=== PATIENT | female | born 1935 | race Caucasian/White ===

== ENCOUNTER 2020-09-19 11:10 | Outpatient (REF) | payer MEDICARE, OTHER, SELFPAY ==
[2020-09-19 14:06] LABS: MANUAL DIFF FLAG NO
[2020-09-19 14:09] LABS: Basophils Percent Auto 0.4 % (0-2); Eosinophils Percent Auto 0.1 % (0-4); Hematocrit 35.1 % (37-47); Hemoglobin 11.2 g/dl (12.0-16.0); Imm Gran Abs Auto 0.04 X10*3/uL (0.00-0.03); Imm Gran Pct Auto 0.4 % (0.0-0.4); Lymphocytes Absolute Auto 2.4 X10*3/uL (1.2-4.9); Lymphocytes Percent Auto 26.7 % (20-40); Mean Corpuscular HGB Conc 31.9 g/dl (31.0-35.0); Mean Corpuscular Hemoglobin 29.6 pg (27.0-33.0); Mean Corpuscular Volume 92.6 fL (80-98); Mean Platelet Volume 9.9 fL (9.4-12.3); Monocytes Absolute Auto 0.6 X10*3/uL (0.1-1.2); Monocytes Percent Auto 6.1 % (2-11); Neutrophils Percent Auto 66.3 % (45-73); Platelet Count 216 X10*3/uL (160-400); Red Blood Count 3.79 X10*6/uL (4.20-5.50); Red Cell Distribution Width 12.9 % (11.0-16.0); White Blood Count 9.1 X10*3/uL (4.8-10.8)
[2020-09-19 14:36] LABS: Estimated Average Glucose 171 mg/dL; Hemoglobin A1c % 7.6 %
[2020-09-19 14:44] LABS: Anion Gap 15 (12-20); Blood Urea Nitrogen 19 mg/dL (9-16); Calcium 9.6 mg/dL (8.4-10.2); Carbon Dioxide 26 mmol/L (22-29); Chloride 103 mmol/L (96-108); Estimated Glomerular Filt Rate 41; Glucose Random 235 mg/dL (60-115); Potassium 4.7 mmol/l (3.3-5.1); Sodium 139 mmol/L (135-145)
[2020-09-19 15:05] LABS: TSH reflex Free T4 0.94 mIU/mL (0.32-4.0)
== END 2020-09-19 11:11 | disposition home or self-care (01) ==
LOC: HO.HMGCLDS 11:10
PROVIDERS: PCP Internal Medicine; Visit Provider Internal Medicine
DX: M17.0 Bilateral primary osteoarthritis of knee (principal); E78.9 Disorder of lipoprotein metabolism, unspecified; E03.8 Other specified hypothyroidism; E13.9 Other specified diabetes mellitus without complications; I10 Essential (primary) hypertension
CPT/HCPCS: 36415; 80048; 83036; 84443; 85025

== ENCOUNTER → 2020-10-01 12:43 | Outpatient (BNVA) | payer MEDICARE, OTHER, SELFPAY | PROVIDERS: PCP Internal Medicine; Referring Provider Internal Medicine; Visit Provider Orthopaedic Surgery | DX: M17.0 Bilateral primary osteoarthritis of knee (principal) | CPT/HCPCS: 99202 ==

== ENCOUNTER 2020-12-31 | Outpatient (REF) | payer MEDICARE, OTHER, SELFPAY | END 2020-12-31 00:01 | disposition home or self-care (01) | LOC: HO.VC | PROVIDERS: Visit Provider Internal Medicine | DX: Z23 Encounter for immunization (principal) | CPT/HCPCS: 0011A ==

== ENCOUNTER 2021-01-27 | Outpatient (REF) | payer MEDICARE, OTHER, SELFPAY | END 2021-01-27 00:01 | disposition home or self-care (01) | LOC: HO.VC | PROVIDERS: Visit Provider Internal Medicine | DX: Z23 Encounter for immunization (principal) | CPT/HCPCS: 0012A ==

== ENCOUNTER 2021-02-27 09:17 | Outpatient (REF) | payer MEDICARE, OTHER, SELFPAY ==
[2021-02-27 11:45] LABS: Estimated Average Glucose 189 mg/dL; Hemoglobin A1c % 8.2 %
[2021-02-27 12:11] LABS: Alanine Aminotransferase 13 U/L (0-31); Albumin Level 4.5 g/dL (3.5-5.0); Alkaline Phosphatase 108 U/L (39-117); Anion Gap 15 (12-20); Aspartate Amino Transferase 16 U/L (5-31); Bilirubin Total 0.3 mg/dL (0.0-1.0); Blood Urea Nitrogen 28 mg/dL (9-16); Calcium 9.7 mg/dL (8.4-10.2); Carbon Dioxide 24 mmol/L (22-29); Chloride 105 mmol/L (96-108); Cholesterol 150 mg/dL; Estimated Glomerular Filt Rate 43; Glucose Fasting 180 mg/dL (60-99); HDL Cholesterol 55 mg/dL; LDL Cholesterol Calculated 75 mg/dl; Potassium 4.6 mmol/L (3.3-5.1); Sodium 139 mmol/L (135-145); Total Protein 7.3 g/dL (6.5-8.0); Triglycerides 104 mg/dL
[2021-02-27 12:16] LABS: TSH reflex Free T4 1.86 uIU/mL (0.32-4.0)
[2021-02-27 12:23] LABS: Creatinine Urine 124.55 mg/dL; Microalbum/Creatinine Ratio Ur 69.8 ug/mg cr
== END 2021-02-27 09:18 | disposition home or self-care (01) ==
LOC: HO.HMGCLDS 09:17
PROVIDERS: PCP Internal Medicine; Visit Provider Internal Medicine
DX: E03.8 Other specified hypothyroidism (principal); R80.9 Proteinuria, unspecified; E78.9 Disorder of lipoprotein metabolism, unspecified; E13.9 Other specified diabetes mellitus without complications; I10 Essential (primary) hypertension
CPT/HCPCS: 36415; 80053; 80061; 82043; 83036; 84443

== ENCOUNTER 2021-07-03 10:21 | Outpatient (REF) | payer MEDICARE, OTHER, SELFPAY ==
[2021-07-03 11:31] LABS: Estimated Average Glucose 220 mg/dL; Hemoglobin A1c % 9.3 %
[2021-07-03 11:48] LABS: Alanine Aminotransferase 12 U/L (0-31); Albumin Level 4.3 g/dL (3.5-5.0); Alkaline Phosphatase 124 U/L (39-117); Anion Gap 15 (12-20); Aspartate Amino Transferase 16 U/L (5-31); Bilirubin Total 0.9 mg/dL (0.0-1.0); Blood Urea Nitrogen 18 mg/dL (9-16); Calcium 10.2 mg/dL (8.4-10.2); Carbon Dioxide 26 mmol/L (22-29); Chloride 102 mmol/L (96-108); Cholesterol 147 mg/dL; Estimated Glomerular Filt Rate 34; Glucose Random 197 mg/dL (60-115); HDL Cholesterol 52 mg/dL; LDL Cholesterol Calculated 71 mg/dl; Potassium 4.7 mmol/L (3.3-5.1); Sodium 138 mmol/L (135-145); Total Protein 7.2 g/dL (6.5-8.0); Triglycerides 121 mg/dL
== END 2021-07-03 10:22 | disposition home or self-care (01) ==
LOC: HO.HMGCLDS 10:21
PROVIDERS: PCP Internal Medicine; Visit Provider Internal Medicine
DX: E03.8 Other specified hypothyroidism (principal); E13.9 Other specified diabetes mellitus without complications; E78.9 Disorder of lipoprotein metabolism, unspecified; I10 Essential (primary) hypertension; R80.9 Proteinuria, unspecified
CPT/HCPCS: 36415; 80053; 80061; 82043; 83036

== ENCOUNTER 2021-11-06 10:56 | Outpatient (REF) | payer MEDICARE, OTHER, SELFPAY ==
[2021-11-06 14:14] LABS: Estimated Average Glucose 171 mg/dL; Hemoglobin A1c % 7.6 %
[2021-11-06 14:34] LABS: Alanine Aminotransferase 16 U/L (0-31); Albumin Level 4.4 g/dL (3.5-5.0); Alkaline Phosphatase 118 U/L (39-117); Anion Gap 18 (12-20); Aspartate Amino Transferase 20 U/L (5-31); Bilirubin Total 0.6 mg/dL (0.0-1.0); Blood Urea Nitrogen 16 mg/dL (9-16); Carbon Dioxide 23 mmol/L (22-29); Chloride 104 mmol/L (96-108); Estimated Glomerular Filt Rate 35; Glucose Random 236 mg/dL (60-115); Potassium 4.5 mmol/L (3.3-5.1); Sodium 140 mmol/L (135-145)
== END 2021-11-06 10:57 | disposition home or self-care (01) ==
LOC: HO.HMGCLDS 10:56
PROVIDERS: PCP Internal Medicine; Visit Provider Internal Medicine
DX: E03.8 Other specified hypothyroidism (principal); E13.9 Other specified diabetes mellitus without complications; E78.9 Disorder of lipoprotein metabolism, unspecified; I10 Essential (primary) hypertension; R79.89 Other specified abnormal findings of blood chemistry
CPT/HCPCS: 36415; 80053; 83036

== ENCOUNTER 2022-03-03 08:23 | Outpatient (REF) | payer MEDICARE, OTHER, SELFPAY ==
[2022-03-03 11:28] LABS: MANUAL DIFF FLAG NO
[2022-03-03 11:37] LABS: Basophils Absolute Auto 0.1 X10*3/uL (0.0-0.2); Basophils Percent Auto 0.5 % (0-2); Eosinophils Absolute Auto 0.3 X10*3/uL (0.0-0.4); Eosinophils Percent Auto 2.4 % (0-4); Hematocrit 37.9 % (37.0-47.0); Hemoglobin 12.3 g/dl (12.0-16.0); Imm Gran Abs Auto 0.05 X10*3/uL (0.00-0.03); Imm Gran Pct Auto 0.5 % (0.0-0.4); Lymphocytes Absolute Auto 3.8 X10*3/uL (1.2-4.9); Lymphocytes Percent Auto 36.9 % (20-40); Mean Corpuscular HGB Conc 32.5 g/dl (31.0-35.0); Mean Corpuscular Hemoglobin 30.1 pg (27.0-33.0); Mean Corpuscular Volume 92.7 fL (80.0-98.0); Monocytes Absolute Auto 0.6 X10*3/uL (0.1-1.2); Monocytes Percent Auto 5.7 % (2-11); Neutrophils Absolute Auto 5.5 x10*3/uL (2.0-8.3); Platelet Count 239 X10*3/uL (160-400); Red Blood Count 4.09 X10*6/uL (4.20-5.50); Red Cell Distribution Width 12.9 % (11.0-16.0); White Blood Count 10.3 X10*3/uL (4.8-10.8)
[2022-03-03 11:44] LABS: Estimated Average Glucose 171 mg/dL; Hemoglobin A1c % 7.6 %
[2022-03-03 12:09] LABS: Creatinine Urine 73.86 mg/dL; Microalbum/Creatinine Ratio Ur 28.4 ug/mg cr
[2022-03-03 12:15] LABS: Alanine Aminotransferase 15 U/L (0-31); Albumin Level 4.4 g/dL (3.5-5.0); Alkaline Phosphatase 122 U/L (39-117); Anion Gap 14 (12-20); Aspartate Amino Transferase 18 U/L (5-31); Bilirubin Total 0.9 mg/dL (0.0-1.0); Blood Urea Nitrogen 22 mg/dL (9-16); Calcium 9.7 mg/dL (8.4-10.2); Carbon Dioxide 25 mmol/L (22-29); Chloride 103 mmol/L (96-108); Cholesterol 151 mg/dL; Estimated Glomerular Filt Rate 37; Glucose Fasting 171 mg/dL (60-99); HDL Cholesterol 50 mg/dL; LDL Cholesterol Calculated 77 mg/dl; Potassium 4.6 mmol/L (3.3-5.1); Sodium 137 mmol/L (135-145); Total Protein 7.1 g/dL (6.5-8.0); Triglycerides 120 mg/dL
== END 2022-03-03 08:24 | disposition home or self-care (01) ==
LOC: HO.HMGCLDS 08:23
PROVIDERS: Visit Provider Internal Medicine
DX: E03.8 Other specified hypothyroidism (principal); E13.9 Other specified diabetes mellitus without complications; E78.9 Disorder of lipoprotein metabolism, unspecified; I10 Essential (primary) hypertension; M17.0 Bilateral primary osteoarthritis of knee; R79.89 Other specified abnormal findings of blood chemistry; R80.9 Proteinuria, unspecified
CPT/HCPCS: 36415; 80053; 80061; 82043; 83036; 85025

== ENCOUNTER 2022-09-07 09:02 | Outpatient (REF) | payer MEDICARE, OTHER, SELFPAY ==
[2022-09-07 11:33] LABS: Estimated Average Glucose 171 mg/dL; Hemoglobin A1c % 7.6 %
[2022-09-07 12:01] LABS: Alanine Aminotransferase 15 U/L (0-31); Albumin Level 4.5 g/dL (3.5-5.0); Alkaline Phosphatase 112 U/L (39-117); Anion Gap 15 (12-20); Aspartate Amino Transferase 18 U/L (5-31); Bilirubin Total 0.7 mg/dL (0.0-1.0); Blood Urea Nitrogen 18 mg/dL (9-16); Calcium 9.5 mg/dL (8.4-10.2); Carbon Dioxide 25 mmol/L (22-29); Chloride 107 mmol/L (96-108); Estimated Glomerular Filt Rate 42; Glucose Random 156 mg/dL (60-115); Potassium 4.3 mmol/L (3.3-5.1); Sodium 143 mmol/L (135-145); Total Protein 7.1 g/dL (6.5-8.0)
[2022-09-07 12:07] LABS: Creatinine Urine 64.38 mg/dL; Microalbum/Creatinine Ratio Ur 41.9 ug/mg cr
[2022-09-07 12:12] LABS: TSH reflex Free T4 1.14 uIU/mL (0.32-4.0)
== END 2022-09-07 09:03 | disposition home or self-care (01) ==
LOC: HO.HMGCLDS 09:02
PROVIDERS: PCP Internal Medicine; Visit Provider Internal Medicine
DX: I10 Essential (primary) hypertension (principal); E13.9 Other specified diabetes mellitus without complications; E03.8 Other specified hypothyroidism; E78.9 Disorder of lipoprotein metabolism, unspecified; M17.0 Bilateral primary osteoarthritis of knee; R80.9 Proteinuria, unspecified; R79.89 Other specified abnormal findings of blood chemistry
CPT/HCPCS: 36415; 80053; 82043; 83036; 84443

== ENCOUNTER 2023-02-16 10:37 | Outpatient (REF) | payer MEDICARE, OTHER, SELFPAY ==
[2023-02-16 12:47] LABS: Estimated Average Glucose 186 mg/dL; Hemoglobin A1c % 8.1 %
[2023-02-16 13:08] LABS: TSH reflex Free T4 1.64 uIU/mL (0.32-4.0)
[2023-02-16 13:10] LABS: Anion Gap 13 (12-20)
[2023-02-16 13:14] LABS: Alanine Aminotransferase 12 U/L (0-31); Albumin Level 4.4 g/dL (3.5-5.0); Alkaline Phosphatase 131 U/L (39-117); Aspartate Amino Transferase 17 U/L (5-31); Bilirubin Total 0.8 mg/dL (0.0-1.0); Blood Urea Nitrogen 21 mg/dL (9-16); Calcium 9.7 mg/dL (8.4-10.2); Carbon Dioxide 26 mmol/L (22-29); Chloride 105 mmol/L (96-108); Estimated Glomerular Filt Rate 38; Glucose Random 158 mg/dL (60-115); Potassium 4.6 mmol/L (3.3-5.1); Sodium 139 mmol/L (135-145)
== END 2023-02-16 10:38 | disposition home or self-care (01) ==
LOC: HO.HMGCLDS 10:37
PROVIDERS: PCP Internal Medicine; Visit Provider Internal Medicine
DX: I10 Essential (primary) hypertension (principal); E13.9 Other specified diabetes mellitus without complications; E03.8 Other specified hypothyroidism; E78.9 Disorder of lipoprotein metabolism, unspecified; R80.9 Proteinuria, unspecified; N28.9 Disorder of kidney and ureter, unspecified
CPT/HCPCS: 36415; 80053; 83036; 84443

== ENCOUNTER 2023-05-11 10:25 | Outpatient (REF) | payer MEDICARE, OTHER, SELFPAY ==
[2023-05-11 10:56] LABS: OBS Int Ctl Valid YES; OBS1 NEGATIVE (NEGATIVE)
[2023-05-11 12:25] LABS: Leukocytes Stool Qualitative NEGATIVE (NEGATIVE)
[2023-05-11 14:02] LABS: Adenovirus F 40/41 Not Detected (Not Detect.); Astrovirus Not Detected (Not Detect.); Campylobacter Not Detected (Not Detect.); Cryptosporidium Not Detected (Not Detect.); Cyclospora cayetanensis Not Detected (Not Detect.); E. coli EAEC Not Detected (Not Detect.); E. coli EPEC Not Detected (Not Detect.); E. coli ETEC Not Detected (Not Detect.); E. coli STEC Not Detected (Not Detect.); Entamoeba histolytica Not Detected (Not Detect.); Giardia lamblia Not Detected (Not Detect.); Norovirus GI/GII Not Detected (Not Detect.); Plesiomonas shigelloides Not Detected (Not Detect.); Rotavirus A Not Detected (Not Detect.); Salmonella Not Detected (Not Detect.); Sapovirus Not Detected (Not Detect.); Shigella sp./EIEC Not Detected (Not Detect.); Vibrio Not Detected (Not Detect.); Vibrio Cholerae Not Detected (Not Detect.); Yersinia enterocolitica Not Detected (Not Detect.)
[2023-05-18 18:58] LABS: Calprotectin, Fecal 1520 mcg/g
[2023-05-20 10:13] LABS: Fecal Fat Qualitative NORMAL (NORMAL)
[2023-05-20 19:53] LABS: Pancreatic Elastase-1 496 mcg/g
== END 2023-05-11 10:26 | disposition home or self-care (01) ==
LOC: HO.LNP 10:25
PROVIDERS: Visit Provider Internal Medicine Gastroenterology
DX: R19.7 Diarrhea, unspecified (principal)
CPT/HCPCS: 82272; 82656; 82705; 83993; 87507; 89055

== ENCOUNTER 2023-06-06 11:04 | Outpatient (REF) | payer MEDICARE, OTHER, SELFPAY | END 2023-06-06 11:05 | disposition home or self-care (01) | LOC: HO.LNP 11:04 | PROVIDERS: Visit Provider Internal Medicine Gastroenterology | DX: R19.7 Diarrhea, unspecified (principal) | CPT/HCPCS: 87177; 87209; 87329; 87493 ==

== ENCOUNTER 2023-06-20 08:30 | Outpatient (REF) | payer MEDICARE, OTHER, SELFPAY ==
[2023-06-20 12:02] LABS: Estimated Average Glucose 166 mg/dL; Hemoglobin A1c % 7.4 %
[2023-06-20 12:08] LABS: Alanine Aminotransferase 15 U/L (0-31); Albumin Level 4.2 g/dL (3.5-5.0); Alkaline Phosphatase 126 U/L (39-117); Anion Gap 13 (12-20); Aspartate Amino Transferase 18 U/L (5-31); Bilirubin Total 0.7 mg/dL (0.0-1.0); Blood Urea Nitrogen 19 mg/dL (9-16); Calcium 10.6 mg/dL (8.4-10.2); Carbon Dioxide 27 mmol/L (22-29); Chloride 106 mmol/L (96-108); Estimated Glomerular Filt Rate 41; Glucose Random 154 mg/dL (60-115); Sodium 141 mmol/L (135-145); Total Protein 7.3 g/dL (6.5-8.0)
== END 2023-06-20 08:31 | disposition home or self-care (01) ==
LOC: HO.HMGCLDS 08:30
PROVIDERS: PCP Internal Medicine; Visit Provider Internal Medicine
DX: E03.8 Other specified hypothyroidism (principal); E13.9 Other specified diabetes mellitus without complications; E78.9 Disorder of lipoprotein metabolism, unspecified; I10 Essential (primary) hypertension; N28.9 Disorder of kidney and ureter, unspecified; R80.9 Proteinuria, unspecified
CPT/HCPCS: 36415; 80053; 83036

== ENCOUNTER 2023-07-19 09:41 | Outpatient (AMB) | payer MEDICARE, OTHER, SELFPAY ==
[2023-07-19 09:47] VITALS: BP 140/72; PULSE 69; O2SAT 96; BMI 29.1
--- NOTE | 2023-07-19 09:47 | A.OFFPC_ITS ---
Vital Signs 07/19/23 09:47 Height 5 ft 5 in Weight 175 lb 2 oz BMI 29.1 BP 140/72 H Blood Pressure Location Lt brachial Position Sitting Pulse 69 Pulse Source Pulse Oximeter Pulse Oximetry (%) 96 Oxygen Delivery Method Room Air Intake Visit Reasons: 4m follow up Allergies No Known Allergies Allergy (Mild, Verified 07/19/23 09:51) NA Medication List - Last Reconciled 07/19/23 by Yves Arce MD amlodipine 10 mg PO DAILY 90 days atorvastatin 40 mg PO DAILY 90 days blood sugar diagnostic As directed blood sugar diagnostic (Accu-Chek Suzi Plus test strips) Patient to check blood sugar once daily blood-glucose meter As directed glipizide-metformin 2.5-500 mg 1 tab PO BID 90 days lancets As directed lancets (Accu-Chek Softclix Lancets) Patient to check blood sugar once daily levothyroxine (Levoxyl) 100 mcg PO DAILY 90 days olmesartan 20 mg PO DAILY Tobacco use date assessed: 07/19/23 Fall risk assessment: No Falls in past year Last assessed Fall Risk: 07/19/23 Dental Screening Dental Screen Date: 07/19/23 Did you have a dental visit in the last 12 months?: Yes Did you have a dental problem in the last 6 months where you did not have access to dental care?: No Was dental information given to patient?: No HPI 4m follow up HPI Details Patient is 88-year-old female came in today for her regular follow-up visit.? Patient is in her usual state of health and offer no new complaints today Nephropathy with low GFR , GFR has improved from 38-41. Patient do not want to see any specialist. Diabetes mellitus:? She is to Continue glipizide metformin combination of 2.5- 500 mg b.i.d., hemoglobin A1c checked in May is 7.4 Hypertension:? Patient is on amlodipine 10 mg and olmesartan 20 mg, blood pressure is slightly elevated today we will continue to monitor Has slight swelling of left ankle only Hypothyroidism:? Patient is on levothyroxine 100 mcg.?, TSH is within normal limit She does have microalbuminuria as well.? 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 Son No problems noted. Son No problems noted. Son No problems noted. Son No problems noted. Social History Housing: House Alcohol intake: never Patient Tobacco Use Status: Former Tobacco user (30 years ago ) Tobacco use type: Cigarette Years Smoked: 20 years e-Cigarette/Vaping Use: Never Used service: No Current occupational status: retired Current occupation: Right Handed Cognitive needs: No Hearing needs: No Vision needs: Yes Questionnaire Thrive Questionnaire Date Thrive assessed: 12/17/22 AUDIT C Alcohol Use Questionnaire (AUDIT-C) 1. How often do you have a drink containing alcohol?: Never 3. How often do you have six or more drinks on one occasion?: Never Total Score: 0 Score Reviewed/Action Taken: Yes PATRICIA-7 AMB Questionnaire PATRICIA-7 Date PATRICIA - 7 assessed: 12/17/22 Source: Developed by Drs. Abiel Christensen, Malu Ram, Jean-Pierre Higginbotham and colleagues, with an educational zuleyma from [employer]. Review of Systems Const Denies chills and Denies fever(s) ENT Denies epistaxis and Denies nasal discharge Card Denies chest pain Resp Denies chest congestion, Denies cough and Denies hemoptysis GI Denies diarrhea and Denies nausea Skin/Breast Denies rash Neuro Reports no additional complaints Psych Reports no additional complaints Endo Reports no additional complaints Physical exam (Primary Care) Vital Signs: Last Vital Signs Pulse 69 07/19/23 09:47 BP 140/72 H 07/19/23 09:47 Pulse Ox 96 07/19/23 09:47 Oxygen Delivery Method Room Air 07/19/23 09:47 BMI result Body Mass Index 29.1 Tobacco/Smoking Status: Tobacco use Status Tobacco use date assessed 07/19/23 07/19/23 09:52 Patient Tobacco Use Status Former Tobacco user (30 07/19/23 09:49 years ago ) Tobacco use type Cigarette 07/19/23 09:49 e-Cigarette/Vaping Use Never Used 07/19/23 09:49 Thrive Assessment: Date of Thrive Assessment Date Thrive assessed 12/17/22 07/19/23 09:49 Const General: cooperative, comfortable and no acute distress Orientation/consciousness: patient oriented x3 HENMT Head: Yes normocephalic Eyes General: appearance normal, both eyes and all related structures Neck Neck: Yes supple Resp Effort & Inspection: normal respiratory effort, no cough and no stridor Cardio Rhythm: regular rhythm Heart sounds: S1 normal heart sound present and S2 normal heart sound present Skin General skin exam: turgor normal Neuro General: patient oriented x3, tone normal and moves all extremities Assessment and Plan Assessment & Plan (1) Diabetes 1.5, managed as type 2: Code(s): E13.9 - Other specified diabetes mellitus without complications (2) Hypertension, essential: Code(s): I10 - Essential (primary) hypertension (3) Other specified hypothyroidism: Code(s): E03.8 - Other specified hypothyroidism (4) Lipid disorder: Code(s): E78.9 - Disorder of lipoprotein metabolism, unspecified (5) Microalbuminuria: Code(s): R80.9 - Proteinuria, unspecified (6) Nephropathy: Code(s): N28.9 - Disorder of kidney and ureter, unspecified (7) Edema, lower extremity: Code(s): R60.0 - Localized edema Plan Patient is 88-year-old female came in today for her regular follow-up visit.? Patient is in her usual state of health and offer no new complaints today Nephropathy with low GFR , GFR has improved from 38-41. Patient do not want to see any specialist. Diabetes mellitus:? She is to Continue glipizide metformin combination of 2.5- 500 mg b.i.d., hemoglobin A1c checked in May is 7.4 Hypertension:? Patient is on amlodipine 10 mg and olmesartan 20 mg, blood pressure is slightly elevated today we will continue to monitor Has slight swelling of left ankle only Hypothyroidism:? Patient is on levothyroxine 100 mcg.?, TSH is within normal limit She does have microalbuminuria as well.? 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 Panel 3 Months E03.8 - Other specified hypothyroidism, E13.9 - Other specified diabetes mellitus without complications, E78.9 - Disorder of lipoprotein metabolism, unspecified, I10 - Essential (primary) hypertension, N28.9 - Disorder of kidney and ureter, unspecified, R60.0 - Localized edema, R80.9 - Proteinuria, unspecified Hemoglobin A1c 3 Months E03.8 - Other specified hypothyroidism, E13.9 - Other specified diabetes mellitus without complications, E78.9 - Disorder of lipoprotein metabolism, unspecified, I10 - Essential (primary) hypertension, N28.9 - Disorder of kidney and ureter, unspecified, R60.0 - Localized edema, R80.9 - Proteinuria, unspecified TSH reflex Free T4 3 Months E03.8 - Other specified hypothyroidism, E13.9 - Other specified diabetes mellitus without complications, E78.9 - Disorder of lipoprotein metabolism, unspecified, I10 - Essential (primary) hypertension, N28.9 - Disorder of kidney and ureter, unspecified, R60.0 - Localized edema, R80.9 - Proteinuria, unspecified Complete Blood Count Auto Diff 3 Months E03.8 - Other specified hypothyroidism, E13.9 - Other specified diabetes mellitus without complications, E78.9 - Disorder of lipoprotein metabolism, unspecified, I10 - Essential (primary) hypertension, N28.9 - Disorder of kidney and ureter, unspecified, R60.0 - Localized edema, R80.9 - Proteinuria, unspecified Coding Level of Care Code Est Pt Level 4 (24000) Diagnoses Diabetes 1.5, managed as type 2 E13.9 Hypertension, essential I10 Other specified hypothyroidism E03.8 Lipid disorder E78.9 Microalbuminuria R80.9 Nephropathy N28.9 Edema, lower extremity R60.0
== END 2023-07-19 10:11 | disposition home or self-care (01) ==
PROVIDERS: PCP Internal Medicine; Visit Provider Internal Medicine
DX: E13.9 Other specified diabetes mellitus without complications (principal); I10 Essential (primary) hypertension; E03.8 Other specified hypothyroidism; E78.9 Disorder of lipoprotein metabolism, unspecified; R80.9 Proteinuria, unspecified; N28.9 Disorder of kidney and ureter, unspecified; R60.0 Localized edema
CPT/HCPCS: 99214

== ENCOUNTER 2023-10-14 07:56 | Outpatient (REF) | payer MEDICARE, OTHER, SELFPAY ==
[2023-10-14 11:28] LABS: MANUAL DIFF FLAG NO
[2023-10-14 11:36] LABS: Basophils Absolute Auto 0.1 X10*3/uL (0.0-0.2); Basophils Percent Auto 0.7 % (0-2); Hemoglobin 11.3 g/dl (12.0-16.0); Imm Gran Abs Auto 0.02 X10*3/uL (0.00-0.03); Imm Gran Pct Auto 0.2 % (0.0-0.4); Lymphocytes Absolute Auto 3.9 X10*3/uL (1.2-4.9); Lymphocytes Percent Auto 43.7 % (20-40); Mean Corpuscular HGB Conc 33.2 g/dl (31.0-35.0); Mean Corpuscular Volume 90.2 fL (80.0-98.0); Mean Platelet Volume 9.9 fL (9.4-12.3); Monocytes Absolute Auto 0.5 X10*3/uL (0.1-1.2); Neutrophils Absolute Auto 4.4 x10*3/uL (2.0-8.3); Neutrophils Percent Auto 49.4 % (45-73); Platelet Count 221 X10*3/uL (160-400); Red Blood Count 3.77 X10*6/uL (4.20-5.50); Red Cell Distribution Width 12.9 % (11.0-16.0); White Blood Count 8.9 X10*3/uL (4.8-10.8)
[2023-10-14 11:54] LABS: Estimated Average Glucose 151 mg/dL; Hemoglobin A1C 150.5032 umol/L; Hemoglobin A1c % 6.9 % (<6.0)
[2023-10-14 12:11] LABS: Alanine Aminotransferase 14 U/L (0-31); Albumin Level 4.2 g/dL (3.5-5.0); Alkaline Phosphatase 111 U/L (39-117); Anion Gap 11 (12-20); Aspartate Amino Transferase 17 U/L (5-31); Bilirubin Total 0.6 mg/dL (0.0-1.0); Blood Urea Nitrogen 25 mg/dL (9-16); Calcium 9.5 mg/dL (8.4-10.2); Carbon Dioxide 25 mmol/L (22-29); Chloride 110 mmol/L (96-108); Estimated Glomerular Filt Rate 44; Glucose Random 153 mg/dL (60-115); Sodium 142 mmol/L (135-145); Total Protein 7.1 g/dL (6.5-8.0)
[2023-10-14 12:13] LABS: TSH reflex Free T4 1.34 uIU/mL (0.32-4.0)
== END 2023-10-14 07:57 | disposition home or self-care (01) ==
LOC: HO.HMGCLDS 07:56
PROVIDERS: PCP Internal Medicine; Visit Provider Internal Medicine
DX: R60.0 Localized edema (principal); N28.9 Disorder of kidney and ureter, unspecified; R80.9 Proteinuria, unspecified; E78.9 Disorder of lipoprotein metabolism, unspecified; E03.8 Other specified hypothyroidism; E13.9 Other specified diabetes mellitus without complications; I10 Essential (primary) hypertension
CPT/HCPCS: 36415; 80053; 83036; 84443; 85025

== ENCOUNTER 2023-10-19 09:45 | Outpatient (AMB) | payer MEDICARE, OTHER, SELFPAY ==
--- NOTE | 2023-10-19 09:55 | MHC.PC.OV ---
Vital Signs 10/19/23 09:56 Height 5 ft 5 in Weight 175 lb 2 oz BMI 29.1 BP 142/52 H Blood Pressure Location Rt brachial Position Sitting Pulse 71 Pulse Source Pulse Oximeter Pulse Oximetry (%) 96 Oxygen Delivery Method Room Air Intake Visit Reasons: 3m follow up Allergies No Known Allergies Allergy (Mild, Verified 10/19/23 09:56) NA Medication List - Last Reconciled 10/19/23 by Yves Arce MD amlodipine 10 mg PO DAILY 90 days atorvastatin 40 mg PO DAILY 90 days blood sugar diagnostic As directed blood sugar diagnostic (Accu-Chek Suzi Plus test strips) Patient to check blood sugar once daily blood-glucose meter As directed glipizide-metformin 2.5-500 mg 1 tab PO BID 90 days lancets As directed lancets (Accu-Chek Softclix Lancets) Patient to check blood sugar once daily levothyroxine (Levoxyl) 100 mcg PO DAILY 90 days olmesartan 20 mg PO DAILY Tobacco use date assessed: 10/19/23 Fall risk assessment: No Falls in past year Last assessed Fall Risk: 10/19/23 Dental Screening Dental Screen Date: 10/19/23 Did you have a dental visit in the last 12 months?: Yes Did you have a dental problem in the last 6 months where you did not have access to dental care?: No Was dental information given to patient?: Patient has dentist HPI 3m follow up HPI Details Patient is 88-year-old female came in today for her regular follow-up visit.? Patient had recent visit to her harness placer and had few lesions removed from her body for biopsy Labs done recently reviewed with the patient Nephropathy with low GFR , GFR has improved has improved further to 44 Diabetes mellitus:? She is to Continue glipizide metformin combination of 2.5-500 mg b.i.d., hemoglobin A1c is 6.9 Hypertension:? Patient is on amlodipine 10 mg and olmesartan 20 mg, blood pressure is slightly elevated today we will continue to monitor Ankle swelling is better Hypothyroidism:? Patient is on levothyroxine 100 mcg.?, TSH is within normal limit She does have microalbuminuria as well.? 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 Son No problems noted. Son No problems noted. Son No problems noted. Son No problems noted. Housing: House Alcohol intake: never Patient Tobacco Use Status: Former Tobacco user (30 years ago ) Tobacco use type: Cigarette Years Smoked: 20 years e-Cigarette/Vaping Use: Never Used service: No Current occupational status: retired Current occupation: Right Handed Cognitive needs: No Hearing needs: No Vision needs: Yes Questionnaire PHQ-9 Over the last 2 weeks, how often have you been bothered by any of the following problems? 1. Little interest or pleasure in doing things: not at all 2. Feeling down, depressed, or hopeless: not at all 3. Trouble falling or staying asleep, or sleeping too much: not at all 4. Feeling tired or having little energy: not at all 5. Poor appetite or overeating: not at all 6. Feeling bad about yourself - or that you are a failure or have let yourself or your family down: not at all 7. Trouble concentrating on things, such as reading the newspaper or watching television: not at all 8. Moving or speaking so slowly that other people could have noticed. Or the opposite - being so fidgety or restless that you have been moving around a lot more than usual: not at all 9. Thoughts that you would be better off or of hurting yourself in some way: not at all Total score: 0 Depression Screening Interpretation: Negative Depression Screening Done: Yes 54366 - PHQ-9 Billing: Yes Source: Developed by Drs. Abiel Christensen, Malu Ram, Jean-Pierre Higginbotham and colleagues, with an educational zuleyma from [employer]. Thrive Questionnaire Date Thrive assessed: 12/17/22 AUDIT C Alcohol Use Questionnaire (AUDIT-C) 1. How often do you have a drink containing alcohol?: Never 3. How often do you have six or more drinks on one occasion?: Never Total Score: 0 Score Reviewed/Action Taken: No PATRICIA-7 AMB Questionnaire PATRICIA-7 Date PATRICIA - 7 assessed: 12/17/22 Source: Developed by Drs. Abiel Christensen, Malu Ram, Jean-Pierre Higginbotham and colleagues, with an educational zuleyma from [employer]. Review of Systems Const Denies chills and Denies fever(s) ENT Denies epistaxis and Denies nasal discharge Card Denies chest pain Resp Denies chest congestion, Denies cough and Denies hemoptysis GI Denies diarrhea and Denies nausea Skin/Breast Denies rash Neuro Reports no additional complaints Psych Reports no additional complaints Endo Reports no additional complaints Physical exam (Primary Care) Vital Signs: Last Vital Signs Pulse 71 10/19/23 09:56 BP 142/52 H 10/19/23 09:56 Pulse Ox 96 10/19/23 09:56 Oxygen Delivery Method Room Air 10/19/23 09:56 BMI result Body Mass Index 29.1 Tobacco/Smoking Status: Tobacco use Status Tobacco use date assessed 10/19/23 10/19/23 09:57 Patient Tobacco Use Status Former Tobacco user (30 10/19/23 09:57 years ago ) Tobacco use type Cigarette 10/19/23 09:57 e-Cigarette/Vaping Use Never Used 10/19/23 09:57 PHQ-9: PHQ-9 Score PHQ-9: Total score 0 10/19/23 10:13 Depression Screening Interpretation: Negative Thrive Assessment: Date of Thrive Assessment Date Thrive assessed 12/17/22 10/19/23 09:57 Const General: cooperative, comfortable and no acute distress Orientation/consciousness: patient oriented x3 HENMT Head: Yes normocephalic Eyes General: appearance normal, both eyes and all related structures Neck Neck: Yes supple Resp Effort & Inspection: normal respiratory effort, no cough and no stridor Cardio Rhythm: regular rhythm Heart sounds: S1 normal heart sound present and S2 normal heart sound present Skin General skin exam: turgor normal Neuro General: patient oriented x3, tone normal and moves all extremities Extrem Right lower extremity: no edema Left lower extremity: no edema Assessment and Plan Assessment & Plan (1) Diabetes 1.5, managed as type 2: Code(s): E13.9 - Other specified diabetes mellitus without complications (2) Hypertension, essential: Code(s): I10 - Essential (primary) hypertension (3) Other specified hypothyroidism: Code(s): E03.8 - Other specified hypothyroidism (4) Lipid disorder: Code(s): E78.9 - Disorder of lipoprotein metabolism, unspecified (5) Microalbuminuria: Code(s): R80.9 - Proteinuria, unspecified (6) Nephropathy: Code(s): N28.9 - Disorder of kidney and ureter, unspecified (7) Cardiac pacemaker in situ: Code(s): Z95.0 - Presence of cardiac pacemaker Plan Patient is 88-year-old female came in today for her regular follow-up visit.? Patient had recent visit to her harness placer and had few lesions removed from her body for biopsy Labs done recently reviewed with the patient Nephropathy with low GFR , GFR has improved has improved further to 44 Diabetes mellitus:? She is to Continue glipizide metformin combination of 2.5-500 mg b.i.d., hemoglobin A1c is 6.9 Hypertension:? Patient is on amlodipine 10 mg and olmesartan 20 mg, blood pressure is slightly elevated today we will continue to monitor Ankle swelling is better Hypothyroidism:? Patient is on levothyroxine 100 mcg.?, TSH is within normal limit She does have microalbuminuria as well.? 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
[2023-10-19 09:56] VITALS: BP 142/52; PULSE 71; O2SAT 96; BMI 29.1
== END 2023-10-19 13:42 | disposition home or self-care (01) ==
PROVIDERS: PCP Internal Medicine; Visit Provider Internal Medicine
DX: E13.9 Other specified diabetes mellitus without complications (principal); I10 Essential (primary) hypertension; E03.8 Other specified hypothyroidism; E78.9 Disorder of lipoprotein metabolism, unspecified; R80.9 Proteinuria, unspecified; N28.9 Disorder of kidney and ureter, unspecified; Z95.0 Presence of cardiac pacemaker
CPT/HCPCS: 99214

== ENCOUNTER 2024-01-17 10:09 | Outpatient (AMB) | payer MEDICARE, OTHER, SELFPAY ==
[2024-01-17 10:15] VITALS: BP 146/66; PULSE 62; O2SAT 97; BMI 29.0
--- NOTE | 2024-01-17 10:15 | A.OFFPC_ITS ---
Vital Signs 01/17/24 10:15 Height 5 ft 5 in Weight 174 lb 8 oz BMI 29.0 BP 146/66 H Blood Pressure Location Lt brachial Position Sitting Pulse 62 Pulse Source Pulse Oximeter Pulse Oximetry (%) 97 Oxygen Delivery Method Room Air Intake Visit Reasons: 6m follow up Allergies No Known Allergies Allergy (Mild, Verified 01/17/24 10:17) NA Medication List - Last Reconciled 01/17/24 by Yves Arce MD amlodipine 10 mg PO DAILY 90 days atorvastatin 40 mg PO DAILY 90 days blood sugar diagnostic As directed blood sugar diagnostic (Accu-Chek Suzi Plus test strips) Patient to check blood sugar once daily blood-glucose meter As directed glipizide-metformin 2.5-500 mg 1 tab PO BID 90 days lancets As directed lancets (Accu-Chek Softclix Lancets) Patient to check blood sugar once daily levothyroxine (Levoxyl) 100 mcg PO DAILY 90 days olmesartan 20 mg PO DAILY Tobacco use date assessed: 01/17/24 Fall risk assessment: No Falls in past year Last assessed Fall Risk: 01/17/24 Dental Screening Dental Screen Date: 01/17/24 Did you have a dental visit in the last 12 months?: Yes Did you have a dental problem in the last 6 months where you did not have access to dental care?: No Was dental information given to patient?: Patient has dentist HPI 6m follow up HPI Details Patient is 88-year-old female came in today for her regular follow-up visit.? Patient is in her usual state of health, labs were done made of September, new set of lab order placed Nephropathy with low GFR , GFR has improved has improved further to 44 Diabetes mellitus:? She is to Continue glipizide metformin combination of 2.5- 500 mg b.i.d., hemoglobin A1c is controlled Hypertension:? Patient is on amlodipine 10 mg and olmesartan 20 mg, blood pressure is slightly elevated today , patient need to get her blood pressure monitor and start monitoring her blood pressure at home She is to give me a call in 7 days with blood pressure readings from home, and then we will decide if we should increase olmesartan does not Ankle swelling is better Hypothyroidism:? Patient is on levothyroxine 100 mcg.?, TSH is within normal limit She does have microalbuminuria as well.? 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 Son No problems noted. Son No problems noted. Son No problems noted. Son No problems noted. Social History Housing: House Alcohol intake: never Patient Tobacco Use Status: Former Tobacco user (30 years ago ) Tobacco use type: Cigarette Years Smoked: 20 years e-Cigarette/Vaping Use: Never Used service: No Current occupational status: retired Current occupation: Right Handed Cognitive needs: No Hearing needs: No Vision needs: Yes Questionnaire PHQ-9 Over the last 2 weeks, how often have you been bothered by any of the following problems? 1. Little interest or pleasure in doing things: not at all 2. Feeling down, depressed, or hopeless: not at all 3. Trouble falling or staying asleep, or sleeping too much: not at all 4. Feeling tired or having little energy: not at all 5. Poor appetite or overeating: not at all 6. Feeling bad about yourself - or that you are a failure or have let yourself or your family down: not at all 7. Trouble concentrating on things, such as reading the newspaper or watching television: not at all 8. Moving or speaking so slowly that other people could have noticed. Or the opposite - being so fidgety or restless that you have been moving around a lot more than usual: not at all 9. Thoughts that you would be better off or of hurting yourself in some way: not at all Total score: 0 Depression Screening Interpretation: Negative Depression Screening Done: Yes 67511 - PHQ-9 Billing: Yes Source: Developed by Drs. Abiel Christensen, Jean-Pierre Hummel and colleagues, with an educational zuleyma from [employer]. Thrive Questionnaire Date Thrive assessed: 01/17/24 I am a: Patient What is your living situation today?: I have a steady place to live Within the past 12 months, did the food you bought not last and you didn't have the money to get more?: Never true Within the past 12 months, did you worry whether your food would run out before you got money to buy more?: Never true Do you have trouble paying for medicines?: No Do you have trouble getting transportation to medical appointments?: No Do you have trouble paying your heating and electricity bill?: No Do you have trouble taking care of your child, family member or friend?: No Do you have trouble with day-to-day activities such as bathing, preparing meals, shopping, managing finances, etc.?: No Are you currently unemployed and looking for a job?: No Are you interested in more education?: No Please select the resources that you would like help with: None Currently or been in a relationship where the following occur: no concerns reported THRIVE Score: 0 AUDIT C Alcohol Use Questionnaire (AUDIT-C) 1. How often do you have a drink containing alcohol?: Never 3. How often do you have six or more drinks on one occasion?: Never Total Score: 0 Score Reviewed/Action Taken: Yes PATRICIA-7 AMB Questionnaire PATRICIA-7 Date PATRICIA - 7 assessed: 01/17/24 Feeling nervous, anxious, or on edge: 0 = Not at all Not being able to stop or control worryin = Not at all Worrying too much about different things: 0 = Not at all Trouble relaxin = Not at all Being so restless that it is hard to sit still: 0 = Not at all Becoming easily annoyed or irritable: 0 = Not at all Feeling afraid as if something awful might happen: 0 = Not at all Total PATRICIA-7 score (0-4 normal; 5-9 mild; 10-14 moderate; 15-21 severe): 0 Source: Developed by Drs. Abiel Christensen, Jean-Pierre Hummel and colleagues, with an educational zuleyma from [employer]. PATRICIA-7 Assessment Billing PATRICIA-7 Assessment Tool: PATRICIA-7 Assessment 48727 Review of Systems Const Denies chills and Denies fever(s) ENT Denies epistaxis and Denies nasal discharge Card Denies chest pain Resp Denies chest congestion, Denies cough and Denies hemoptysis GI Denies diarrhea and Denies nausea Skin/Breast Denies rash Neuro Reports no additional complaints Psych Reports no additional complaints Endo Reports no additional complaints Physical exam (Primary Care) Vital Signs: Last Vital Signs Pulse 62 01/17/24 10:15 BP 146/66 H 01/17/24 10:15 Pulse Ox 97 01/17/24 10:15 Oxygen Delivery Method Room Air 01/17/24 10:15 BMI result Body Mass Index 29.0 Tobacco/Smoking Status: Tobacco use Status Tobacco use date assessed 01/17/24 01/17/24 10:18 Patient Tobacco Use Status Former Tobacco user (30 01/17/24 10:17 years ago ) Tobacco use type Cigarette 01/17/24 10:17 e-Cigarette/Vaping Use Never Used 01/17/24 10:17 PHQ-9: PHQ-9 Score PHQ-9: Total score 0 01/17/24 10:19 Depression Screening Interpretation: Negative Thrive Assessment: Date of Thrive Assessment Date Thrive assessed 01/17/24 01/17/24 10:19 Currently or been in a relationship where the following occur: no concerns reported Const General: cooperative, comfortable and no acute distress Orientation/consciousness: patient oriented x3 HENMT Head: Yes normocephalic Eyes General: appearance normal, both eyes and all related structures Neck Neck: Yes supple Resp Effort & Inspection: normal respiratory effort, no cough and no stridor Cardio Rhythm: regular rhythm Heart sounds: S1 normal heart sound present and S2 normal heart sound present Skin General skin exam: turgor normal Neuro General: patient oriented x3, tone normal and moves all extremities Extrem Right lower extremity: no edema Left lower extremity: no edema Assessment and Plan Assessment & Plan (1) Hypertension, essential: Code(s): I10 - Essential (primary) hypertension (2) Diabetes 1.5, managed as type 2: Code(s): E13.9 - Other specified diabetes mellitus without complications (3) Other specified hypothyroidism: Code(s): E03.8 - Other specified hypothyroidism (4) Lipid disorder: Code(s): E78.9 - Disorder of lipoprotein metabolism, unspecified (5) Osteoarthritis of knees, bilateral: Code(s): M17.0 - Bilateral primary osteoarthritis of knee Qualifiers: Osteoarthritis type: primary Qualified Code(s): M17.0 - Bilateral primary osteoarthritis of knee (6) Microalbuminuria: Code(s): R80.9 - Proteinuria, unspecified (7) Nephropathy: Code(s): N28.9 - Disorder of kidney and ureter, unspecified (8) Cardiac pacemaker in situ: Code(s): Z95.0 - Presence of cardiac pacemaker Plan Patient is 88-year-old female came in today for her regular follow-up visit.? Patient is in her usual state of health, labs were done made of September, new set of lab order placed Nephropathy with low GFR , GFR has improved has improved further to 44 Diabetes mellitus:? She is to Continue glipizide metformin combination of 2.5- 500 mg b.i.d., hemoglobin A1c is controlled Hypertension:? Patient is on amlodipine 10 mg and olmesartan 20 mg, blood pressure is slightly elevated today , patient need to get her blood pressure monitor and start monitoring her blood pressure at home She is to give me a call in 7 days with blood pressure readings from home, and then we will decide if we should increase olmesartan does not Ankle swelling is better Hypothyroidism:? Patient is on levothyroxine 100 mcg.?, TSH is within normal limit She does have microalbuminuria as well.? 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 [facility] She lives alone and is able to do her groceries however her son lives downstairs she is living in a duplex Follow-up 3 months, Orders: Orders Hemoglobin A1c Today E03.8 - Other specified hypothyroidism, E13.9 - Other specified diabetes mellitus without complications, E78.9 - Disorder of lipoprotein metabolism, unspecified, I10 - Essential (primary) hypertension, M17.0 - Bilateral primary osteoarthritis of knee, N28.9 - Disorder of kidney and ureter, unspecified, R79.89 - Other specified abnormal findings of blood chemistry, R80.9 - Proteinuria, unspecified, Z95.0 - Presence of cardiac pacemaker Microalbumin, Random (w Creat) Today E03.8 - Other specified hypothyroidism, E13.9 - Other specified diabetes mellitus without complications, E78.9 - Disorder of lipoprotein metabolism, unspecified, I10 - Essential (primary) hypertension, M17.0 - Bilateral primary osteoarthritis of knee, N28.9 - Disorder of kidney and ureter, unspecified, R79.89 - Other specified abnormal findings of blood chemistry, R80.9 - Proteinuria, unspecified, Z95.0 - Presence of cardiac pacemaker Complete Blood Count Auto Diff Today E03.8 - Other specified hypothyroidism, E13.9 - Other specified diabetes mellitus without complications, E78.9 - Disorder of lipoprotein metabolism, unspecified, I10 - Essential (primary) hypertension, M17.0 - Bilateral primary osteoarthritis of knee, N28.9 - Disorder of kidney and ureter, unspecified, R79.89 - Other specified abnormal findings of blood chemistry, R80.9 - Proteinuria, unspecified, Z95.0 - Presence of cardiac pacemaker Comprehensive Met. Panel Today E03.8 - Other specified hypothyroidism, E13.9 - Other specified diabetes mellitus without complications, E78.9 - Disorder of lipoprotein metabolism, unspecified, I10 - Essential (primary) hypertension, M17.0 - Bilateral primary osteoarthritis of knee, N28.9 - Disorder of kidney and ureter, unspecified, R79.89 - Other specified abnormal findings of blood chemistry, R80.9 - Proteinuria, unspecified, Z95.0 - Presence of cardiac pacemaker LDL Cholesterol Direct Today E03.8 - Other specified hypothyroidism, E13.9 - Other specified diabetes mellitus without complications, E78.9 - Disorder of lipoprotein metabolism, unspecified, I10 - Essential (primary) hypertension, M17.0 - Bilateral primary osteoarthritis of knee, N28.9 - Disorder of kidney and ureter, unspecified, R79.89 - Other specified abnormal findings of blood chemistry, R80.9 - Proteinuria, unspecified, Z95.0 - Presence of cardiac pacemaker TSH reflex Free T4 Today E03.8 - Other specified hypothyroidism, E13.9 - Other specified diabetes mellitus without complications, E78.9 - Disorder of lipoprotein metabolism, unspecified, I10 - Essential (primary) hypertension, M17.0 - Bilateral primary osteoarthritis of knee, N28.9 - Disorder of kidney and ureter, unspecified, R79.89 - Other specified abnormal findings of blood chemistry, R80.9 - Proteinuria, unspecified, Z95.0 - Presence of cardiac pacemaker Coding Level of Care Code Est Pt Level 4 (42179) Diagnoses Hypertension, essential I10 Diabetes 1.5, managed as type 2 E13.9 Other specified hypothyroidism E03.8 Lipid disorder E78.9 Primary osteoarthritis of both knees M17.0 Osteoarthritis type: primary Microalbuminuria R80.9 Nephropathy N28.9 Cardiac pacemaker in situ Z95.0 Additional Codes PATRICIA-7 Assessment Billing - PATRICIA-7 Assessment Tool: PATRICIA-7 Assessment [id number] ([id number])
== END 2024-01-17 10:31 | disposition home or self-care (01) ==
PROVIDERS: PCP Internal Medicine; Visit Provider Internal Medicine
DX: I10 Essential (primary) hypertension (principal); E13.9 Other specified diabetes mellitus without complications; E03.8 Other specified hypothyroidism; E78.9 Disorder of lipoprotein metabolism, unspecified; M17.0 Bilateral primary osteoarthritis of knee; R80.9 Proteinuria, unspecified; N28.9 Disorder of kidney and ureter, unspecified; Z95.0 Presence of cardiac pacemaker
CPT/HCPCS: 99214

== ENCOUNTER 2024-02-28 09:42 | Outpatient (REF) | payer MEDICARE, OTHER, SELFPAY ==
[2024-02-28 12:48] LABS: MANUAL DIFF FLAG NO
[2024-02-28 13:04] LABS: Basophils Absolute Auto 0.1 X10*3/uL (0.0-0.2); Basophils Percent Auto 0.7 % (0-2); Hematocrit 35.2 % (37.0-47.0); Hemoglobin 11.6 g/dl (12.0-16.0); Imm Gran Abs Auto 0.04 X10*3/uL (0.00-0.03); Imm Gran Pct Auto 0.5 % (0.0-0.4); Lymphocytes Absolute Auto 3.1 X10*3/uL (1.2-4.9); Lymphocytes Percent Auto 36.1 % (20-40); Mean Corpuscular Hemoglobin 30.4 pg (27.0-33.0); Mean Corpuscular Volume 92.4 fL (80.0-98.0); Mean Platelet Volume 9.6 fL (9.4-12.3); Monocytes Absolute Auto 0.5 X10*3/uL (0.1-1.2); Monocytes Percent Auto 6.2 % (2-11); Neutrophils Absolute Auto 4.8 x10*3/uL (2.0-8.3); Neutrophils Percent Auto 56.5 % (45-73); Platelet Count 227 X10*3/uL (160-400); Red Blood Count 3.81 X10*6/uL (4.20-5.50); Red Cell Distribution Width 13.1 % (11.0-16.0); White Blood Count 8.5 X10*3/uL (4.8-10.8)
[2024-02-28 13:17] LABS: Estimated Average Glucose 151 mg/dL; Hemoglobin A1C 150.0262 umol/L; Hemoglobin A1c % 6.9 % (<6.0)
[2024-02-28 13:43] LABS: Alanine Aminotransferase 14 U/L (0-31); Albumin Level 4.1 g/dL (3.5-5.0); Alkaline Phosphatase 131 U/L (39-117); Anion Gap 12 (12-20); Aspartate Amino Transferase 18 U/L (5-31); Bilirubin Total 0.6 mg/dL (0.0-1.0); Blood Urea Nitrogen 27 mg/dL (9-16); Calcium 10.8 mg/dL (8.4-10.2); Carbon Dioxide 25 mmol/L (22-29); Chloride 108 mmol/L (96-108); Estimated Glomerular Filt Rate 36; Glucose Random 148 mg/dL (60-115); Potassium 4.5 mmol/L (3.3-5.1); Sodium 140 mmol/L (135-145); Total Protein 7.3 g/dL (6.5-8.0)
[2024-02-28 13:55] LABS: Creatinine Urine 89.06 mg/dL; Microalbum/Creatinine Ratio Ur 88.7 ug/mg cr (<30)
[2024-03-01 07:34] LABS: LDL Cholesterol Direct 79 mg/dL (<100)
== END 2024-02-28 09:43 | disposition home or self-care (01) ==
LOC: HO.HMGCLDS 09:42
PROVIDERS: PCP Internal Medicine; Visit Provider Internal Medicine
DX: I10 Essential (primary) hypertension (principal); E13.9 Other specified diabetes mellitus without complications; E03.8 Other specified hypothyroidism; E78.9 Disorder of lipoprotein metabolism, unspecified; M17.0 Bilateral primary osteoarthritis of knee; R80.9 Proteinuria, unspecified; R79.89 Other specified abnormal findings of blood chemistry; N28.9 Disorder of kidney and ureter, unspecified; Z95.0 Presence of cardiac pacemaker
CPT/HCPCS: 36415; 80053; 82043; 82570; 83036; 83721; 84443; 85025

== ENCOUNTER 2024-04-17 15:22 | Outpatient (AMB) | payer MEDICARE, OTHER, SELFPAY ==
[2024-04-17 15:28] VITALS: BP 142/68; PULSE 61; O2SAT 96; BMI 29.6
--- NOTE | 2024-04-17 15:28 | A.OFFVIS_ITS ---
Intake Vital Signs 04/17/24 15:28 Height 5 ft 5 in Weight 178 lb BMI 29.6 BP 142/68 H Blood Pressure Location Rt brachial Position Sitting Pulse 61 Pulse Source Pulse Oximeter Pulse Oximetry (%) 96 Oxygen Delivery Method Room Air Intake Visit Reasons: Annual PE Allergies No Known Allergies Allergy (Mild, Verified 04/17/24 15:32) NA Medication List - Last Reconciled 04/17/24 by Yves Arce MD amlodipine 10 mg PO DAILY 90 days atorvastatin 40 mg PO DAILY 90 days blood sugar diagnostic As directed blood sugar diagnostic (Accu-Chek Suzi Plus test strips) Patient to check blood sugar once daily blood-glucose meter As directed glipizide-metformin 2.5-500 mg 1 tab PO BID 90 days lancets As directed lancets (Accu-Chek Softclix Lancets) Patient to check blood sugar once daily levothyroxine (Levoxyl) 100 mcg PO DAILY 90 days olmesartan 20 mg PO DAILY Do you need a note to return to daycare/school/sports/work: No HPI Annual PE HPI Details Patient is 88-year-old female came in today for her regular follow-up visit patient is on amlodipine 10 mg and Olmesartan 20 mg once a day, patient is tolerating medication, blood pressure is stable GFR is reduced for the due 36, patient does not want to see a [employer] operations intelligence officer we will continue to monitor She is also complaining of slight discharge rectum off and on, she has seen Dr. Foss for this problem Colonoscopy was not recommended, patient says that it happens rarely. She is slightly anemic with hemoglobin of 11.6 checked of February this year I have ordered more labs for her patient will do that before she comes and see me in 3 months Continue simvastatin 40 mg for lipid control, patient is tolerating medications. Diabetes:? Patient is on glipizide metformin 2.5-500 mg b.i.d., creatinine is within normal limit, hemoglobin A1c 6.9% Continue levothyroxine 100 mcg daily. Follow-up 3 months HPI Comments History of Present Illness Details AWV Medical/social history reviewed Past medical history reviewed [place] of care / care team list updated Surgical/ hospitalization history reviewed Current medications including OTC and supplements reviewed Family history reviewed Tobacco controlled form updated Alcohol use form updated Illicit drug use in social history reviewed Current diagnosis of depression ?screening updated Appropriate PHQ 2/PHQ-9 completed . Vital signs reviewed Alcohol tobacco drug use reviewed and discussed . MMSE completed . ? Fall risk: ?Assessed Fall history: ?None Have you had any falls with injury in the past year?? No Have you had 2 or more falls in the past year?? No Fall risk assessment completed Home safety discussed with the patient Functional ability assessed and discussed and documented Activities of daily living reviewed and appropriate actions taken . HRA filled out by the patient and reviewed by provider and scanned . Appropriate written screening schedule established . Any health advise needed provided . Advance care planning discussed with the patient , necessary paperwork filled Examination IPPE/AWE: Balance intact Romberg failed Tandem walk failed walk-in turn intact rise from sit to stand intact . ?Hearing ?whisper test failed . Medication list reviewed, patient is stable on medications All other providers patient is seeing discussed and noted . 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 Son No problems noted. Son No problems noted. Son No problems noted. Son No problems noted. Social History Housing: House Alcohol intake: never Patient Tobacco Use Status: Former Tobacco user (30 years ago ) Tobacco use type: Cigarette Years Smoked: 20 years e-Cigarette/Vaping Use: Never Used service: No Current occupational status: retired Current occupation: Right Handed Cognitive needs: No Hearing needs: No Vision needs: Yes Questionnaire Medicare Wellness Checkup What is your age?: 80 or older What gender do you identify with?: female During the past 4 weeks, how much have you been bothered by emotional problems such as feeling anxious, depressed, irritable, sad or downhearted, and blue?: not at all During the past 4 weeks, has your physical & emotional health limited your social activities with family, friends, neighbors, or groups?: not at all During the past 4 weeks, how much bodily pain have you generally had?: very mild pain During the past 4 weeks, was someone available to help you if you needed & wanted help?: yes, as much as I wanted During the past 4 weeks, what was the hardest physical activity you could do for at least 2 minutes?: heavy Can you get to places out of walking distance without help? (For eg., can you travel alone on buses, taxis or drive your car?): Yes Can you go shopping for groceries or clothes without someone's help?: Yes Can you prepare your own meals?: Yes Can you do your housework without help?: Yes Because of any health problems, do you need the help of another person with your personal care needs such as eating, bathing, dressing or getting around the house?: No Can you handle your own money without help?: Yes During the past 4 weeks, how would you rate your health in general?: very good During the past 4 weeks how have things been going for you?: very well; could hardly better Are you having difficulties driving your car?: no Do you always fasten your seat belt when you are in a car?: yes, usually During past 4 weeks, have you been bothered by the following: never: Falling or dizzy when standing up, Sexual problems?, Trouble eating well?, Teeth or denture problems?, Problems using the telephone? and Tiredness or fatigue? Have you fallen 2 or more times in the past year?: No Are you afraid of falling?: Yes Are you a smoker?: no During the past 4 weeks, how many drinks of wine, beer, or other alcoholic beverages did you have?: no alcohol at all Do you exercise for about 20 minutes 3 or more times a week?: yes, some of the time Have you been given information to help with the following?: yes: Hazards in your house that might hurt you? and yes: Keeping track of your medications? How often do you have trouble taking medicines the way you have been told to take them?: I always take medicine as prescribed How confident are you that you can control & manage most of your health problems?: very confident What is your race?: White Mini Mental State Exam (MMSE) Orientation What is the (year) (season) (date) (day) (month)?: year, season, date, day and month Where are we (state) (county) (town or city) (hospital) (floor)?: state, county, town or city, hospital/clinic and floor Score Score: 10 Activity of Daily Living Bathing - sponge bath, tub bath or shower: receives no assistance (gets in/out by self, if usual bathing means Dressing - getting clothes from closets & drawers, including inner/outer garments & fasteners.: gets clothes & gets completely dressed without help Toileting - going to the 'toilet room' for urine/bowel elimination & cleaning self/arranging clothes: goes to toilet room, cleans self, arranges clothes without help Transfer: moves in & out of bed and chair without help (may use support object) Continence: controls urination/bowel movements completely by self Feeding: feeds self without help Total Score: 0 Information obtained from: patient Using telephone: independent Traveling: independent Shopping: independent Preparing meals: independent Housework: independent Taking medicine: independent Managing money: independent PHQ-9 Over the last 2 weeks, how often have you been bothered by any of the following problems? 1. Little interest or pleasure in doing things: not at all 2. Feeling down, depressed, or hopeless: not at all 3. Trouble falling or staying asleep, or sleeping too much: not at all 4. Feeling tired or having little energy: not at all 5. Poor appetite or overeating: not at all 6. Feeling bad about yourself - or that you are a failure or have let yourself or your family down: not at all 7. Trouble concentrating on things, such as reading the newspaper or watching television: not at all 8. Moving or speaking so slowly that other people could have noticed. Or the opposite - being so fidgety or restless that you have been moving around a lot more than usual: not at all 9. Thoughts that you would be better off or of hurting yourself in some way: not at all Total score: 0 Depression Screening Interpretation: Negative Depression Screening Done: Yes 24051 - PHQ-9 Billing: Yes Source: Developed by Drs. Abiel Christensen, Malu Ram, Jean-Pierre Higginbotham and colleagues, with an educational zuleyma from [employer]. Review of Systems Const Denies chills and Denies fever(s) ENT Denies epistaxis and Denies nasal discharge Card Denies chest pain Resp Denies chest congestion, Denies cough and Denies hemoptysis GI Denies diarrhea and Denies nausea Skin/Breast Denies rash Neuro Reports no additional complaints Psych Reports no additional complaints Endo Reports no additional complaints Physical Exam Vital Signs: Last Vital Signs Pulse 61 04/17/24 15:28 BP 142/68 H 04/17/24 15:28 Pulse Ox 96 04/17/24 15:28 Oxygen Delivery Method Room Air 04/17/24 15:28 BMI result Body Mass Index 29.6 Const General: cooperative, comfortable and no acute distress Orientation/consciousness: patient oriented x3 HEENT Head: Yes normocephalic Eyes General: appearance normal, both eyes and all related structures Neck Other: Supple Neck: Yes supple Resp Effort & Inspection: normal respiratory effort, no cough and no stridor Cardio Rhythm: regular rhythm Heart sounds: S1 normal heart sound present and S2 normal heart sound present Skin General skin exam: turgor normal Neuro Other: Motor sensory intact General: patient oriented x3, tone normal and moves all extremities Extrem Other: No lower extremity swelling. Right lower extremity: no edema Left lower extremity: no edema Psych Other: Normal effect, speech clear Assessment & Plan Assessment & Plan (1) Diabetes 1.5, managed as type 2: Code(s): E13.9 - Other specified diabetes mellitus without complications (2) Hypertension, essential: Code(s): I10 - Essential (primary) hypertension (3) Other specified hypothyroidism: Code(s): E03.8 - Other specified hypothyroidism (4) Lipid disorder: Code(s): E78.9 - Disorder of lipoprotein metabolism, unspecified (5) Microalbuminuria: Code(s): R80.9 - Proteinuria, unspecified (6) LFT elevation: Code(s): R79.89 - Other specified abnormal findings of blood chemistry (7) Nephropathy: Code(s): N28.9 - Disorder of kidney and ureter, unspecified (8) Medicare annual wellness visit, subsequent: Code(s): Z00.00 - Encounter for general adult medical examination without abnormal findin gs Plan Patient is 88-year-old female came in today for her regular follow-up visit patient is on amlodipine 10 mg and Olmesartan 20 mg once a day, patient is tolerating medication, blood pressure is stable GFR is reduced for the due 36, patient does not want to see a aoc operations intelligence officer we will continue to monitor She is also complaining of slight discharge rectum off and on, she has seen Dr. Foss for this problem Colonoscopy was not recommended, patient says that it happens rarely. She is slightly anemic with hemoglobin of 11.6 checked of February this year I have ordered more labs for her patient will do that before she comes and see me in 3 months Continue simvastatin 40 mg for lipid control, patient is tolerating medications. Diabetes:? Patient is on glipizide metformin 2.5-500 mg b.i.d., creatinine is within normal limit, hemoglobin A1c 6.9% Continue levothyroxine 100 mcg daily. Follow-up 3 months Orders: Orders Complete Blood Count Auto Diff 3 Months E03.8 - Other specified hypothyroidism, E13.9 - Other specified diabetes mellitus without complications, E78.9 - Disorder of lipoprotein metabolism, unspecified, I10 - Essential (primary) hypertension, N28.9 - Disorder of kidney and ureter, unspecified, R79.89 - Other specified abnormal findings of blood chemistry, R80.9 - Proteinuria, unspecified Vitamin D 25-OH (D2 and D3) 3 Months E03.8 - Other specified hypothyroidism, E13.9 - Other specified diabetes mellitus without complications, E78.9 - Disorder of lipoprotein metabolism, unspecified, I10 - Essential (primary) hypertension, N28.9 - Disorder of kidney and ureter, unspecified, R79.89 - Other specified abnormal findings of blood chemistry, R80.9 - Proteinuria, unspecified Microalbumin, Random (w Creat) 3 Months E03.8 - Other specified hypothyroidism, E13.9 - Other specified diabetes mellitus without complications, E78.9 - Disorder of lipoprotein metabolism, unspecified, I10 - Essential (primary) hypertension, N28.9 - Disorder of kidney and ureter, unspecified, R79.89 - Other specified abnormal findings of blood chemistry, R80.9 - Proteinuria, unspecified Comprehensive Met. Panel 3 Months E03.8 - Other specified hypothyroidism, E13.9 - Other specified diabetes mellitus without complications, E78.9 - Disorder of lipoprotein metabolism, unspecified, I10 - Essential (primary) hypertension, N28.9 - Disorder of kidney and ureter, unspecified, R79.89 - Other specified abnormal findings of blood chemistry, R80.9 - Proteinuria, unspecified Hemoglobin A1c 3 Months E03.8 - Other specified hypothyroidism, E13.9 - Other specified diabetes mellitus without complications, E78.9 - Disorder of lipoprotein metabolism, unspecified, I10 - Essential (primary) hypertension, N28.9 - Disorder of kidney and ureter, unspecified, R79.89 - Other specified abnormal findings of blood chemistry, R80.9 - Proteinuria, unspecified Ferritin 3 Months E03.8 - Other specified hypothyroidism, E13.9 - Other specified diabetes mellitus without complications, E78.9 - Disorder of lipoprotein metabolism, unspecified, I10 - Essential (primary) hypertension, N28.9 - Disorder of kidney and ureter, unspecified, R79.89 - Other specified abnormal findings of blood chemistry, R80.9 - Proteinuria, unspecified LDL Cholesterol Direct 3 Months E03.8 - Other specified hypothyroidism, E13.9 - Other specified diabetes mellitus without complications, E78.9 - Disorder of lipoprotein metabolism, unspecified, I10 - Essential (primary) hypertension, N28.9 - Disorder of kidney and ureter, unspecified, R79.89 - Other specified abnormal findings of blood chemistry, R80.9 - Proteinuria, unspecified Quality Reporting (2020) Depression/Bipolar (159/160/161/177) PHQ-9: Total score: 0 Coding Level of Care Code Medicare Subsequent (G0439) Est Pt Level 4 (03012) Diagnoses Diabetes 1.5, managed as type 2 E13.9 Hypertension, essential I10 Other specified hypothyroidism E03.8 Lipid disorder E78.9 Microalbuminuria R80.9 LFT elevation R79.89 Nephropathy N28.9 Medicare annual wellness visit, subsequent Z00.00 CPT Codes Advance Care Planning - Time spent: 1-15 minutes, on File ([id number]) Advance Care Planning Advance Care Planning discussion: Completed/Scanned [facility] Time spent: 1-15 minutes, on File
== END 2024-04-17 15:54 | disposition home or self-care (01) ==
PROVIDERS: PCP Internal Medicine; Visit Provider Internal Medicine
DX: Z00.00 Encounter for general adult medical examination without abnormal findings (principal); E13.9 Other specified diabetes mellitus without complications; I10 Essential (primary) hypertension; E03.8 Other specified hypothyroidism; E78.9 Disorder of lipoprotein metabolism, unspecified; R80.9 Proteinuria, unspecified; R79.89 Other specified abnormal findings of blood chemistry; N28.9 Disorder of kidney and ureter, unspecified
CPT/HCPCS: 1123F; 99214; G0439

== ENCOUNTER 2024-07-18 10:02 | Outpatient (REF) | payer MEDICARE, OTHER, SELFPAY ==
[2024-07-18 13:17] LABS: MANUAL DIFF FLAG NO
[2024-07-18 13:30] LABS: Basophils Absolute Auto 0.1 X10*3/uL (0.0-0.2); Basophils Percent Auto 0.7 % (0-2); Hematocrit 36.1 % (37.0-47.0); Imm Gran Abs Auto 0.02 X10*3/uL (0.00-0.03); Imm Gran Pct Auto 0.2 % (0.0-0.4); Lymphocytes Absolute Auto 2.4 X10*3/uL (1.2-4.9); Mean Corpuscular HGB Conc 33.2 g/dl (31.0-35.0); Mean Corpuscular Hemoglobin 30.3 pg (27.0-33.0); Mean Corpuscular Volume 91.2 fL (80.0-98.0); Mean Platelet Volume 9.7 fL (9.4-12.3); Monocytes Absolute Auto 0.5 X10*3/uL (0.1-1.2); Monocytes Percent Auto 5.9 % (2-11); Neutrophils Percent Auto 66.2 % (45-73); Platelet Count 226 X10*3/uL (160-400); Red Blood Count 3.96 X10*6/uL (4.20-5.50)
[2024-07-18 13:40] LABS: Estimated Average Glucose 151 mg/dL; Hemoglobin A1c % 6.9 % (<6.0)
[2024-07-18 14:05] LABS: Alanine Aminotransferase 12 U/L (0-31); Albumin Level 4.4 g/dL (3.5-5.0); Alkaline Phosphatase 117 U/L (39-117); Anion Gap 13 (12-20); Aspartate Amino Transferase 16 U/L (5-31); Bilirubin Total 0.8 mg/dL (0.0-1.0); Blood Urea Nitrogen 20 mg/dL (9-16); Calcium 9.8 mg/dL (8.4-10.2); Carbon Dioxide 25 mmol/L (22-29); Chloride 108 mmol/L (96-108); Estimated Glomerular Filt Rate 44; Glucose Random 116 mg/dL (60-115); Potassium 3.9 mmol/L (3.3-5.1); Sodium 142 mmol/L (135-145); Total Protein 7.5 g/dL (6.5-8.0)
[2024-07-18 14:07] LABS: Ferritin 53 ng/mL (10-250)
[2024-07-18 14:32] LABS: Creatinine Urine 42.24 mg/dL; Microalbum/Creatinine Ratio Ur 118.3 ug/mg cr (<30)
[2024-07-19 09:58] LABS: LDL Cholesterol Direct 61 mg/dL (<100)
[2024-07-24 06:18] LABS: Vitamin D 25-OH, D2 <4 ng/mL; Vitamin D 25-OH, D3 43 ng/mL; Vitamin D 25-OH, Total 43 ng/mL (30-100)
== END 2024-07-18 10:03 | disposition home or self-care (01) ==
LOC: HO.HMGCLDS 10:02
PROVIDERS: PCP Internal Medicine; Visit Provider Internal Medicine
DX: E13.9 Other specified diabetes mellitus without complications (principal); I10 Essential (primary) hypertension; E03.8 Other specified hypothyroidism; E78.9 Disorder of lipoprotein metabolism, unspecified; R80.9 Proteinuria, unspecified; R79.89 Other specified abnormal findings of blood chemistry; N28.9 Disorder of kidney and ureter, unspecified
CPT/HCPCS: 36415; 80053; 82043; 82306; 82570; 82728; 83036; 83721; 85025

== ENCOUNTER 2024-08-01 09:43 | Outpatient (AMB) | payer MEDICARE, OTHER, SELFPAY ==
[2024-08-01 09:45] VITALS: BP 142/70; PULSE 66; O2SAT 97; BMI 29.1
--- NOTE | 2024-08-01 09:45 | A.OFFPC_ITS ---
Vital Signs 08/01/24 09:45 Height 5 ft 5 in Weight 175 lb BMI 29.1 BP 142/70 H Blood Pressure Location Lt brachial Position Sitting Pulse 66 Pulse Source Pulse Oximeter Pulse Oximetry (%) 97 Oxygen Delivery Method Room Air Intake Visit Reasons: 4 month follow up Allergies No Known Allergies Allergy (Mild, Verified 08/01/24 09:45) NA Medication List - Last Reconciled 08/01/24 by Yves Arce MD amlodipine 10 mg PO DAILY 90 days atorvastatin 40 mg PO DAILY 90 days blood sugar diagnostic As directed blood sugar diagnostic (Accu-Chek Suzi Plus test strips) Patient to check blood sugar once daily blood-glucose meter As directed glipizide-metformin 2.5-500 mg 1 tab PO BID 90 days lancets As directed lancets (Accu-Chek Softclix Lancets) Patient to check blood sugar once daily levothyroxine (Levoxyl) 100 mcg PO DAILY 90 days olmesartan 20 mg PO DAILY Tobacco use date assessed: 08/01/24 Fall risk assessment: No Falls in past year Last assessed Fall Risk: 08/01/24 Dental Screening Dental Screen Date: 08/01/24 Did you have a dental visit in the last 12 months?: Yes Did you have a dental problem in the last 6 months where you did not have access to dental care?: No Was dental information given to patient?: Patient has dentist HPI 4 month follow up HPI Details Patient is 89-year-old female came in today for her regular follow-up visit.? GFR was checked June of this year it was 44 Diabetes mellitus:? I am changing the diabetic medication to glipizide slower release 5 mg once a day and we will stop metformin Hemoglobin A1c is in 6.9 range Hypertension:? Patient is on amlodipine 10 mg , she does have mild swelling of left ankle, which is not bothering her. Also taking olmesartan 20 mg, Hypothyroidism:? Patient is on levothyroxine 100 mcg.?, TSH is within normal limit She does have microalbuminuria as well.? Stable Cardiac pacemaker in place patient's quality assurance manager is? Dr. 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 Son No problems noted. Son No problems noted. Son No problems noted. Son No problems noted. Social History Housing: House Alcohol intake: never Patient Tobacco Use Status: Former Tobacco user (30 years ago ) Tobacco use type: Cigarette Years Smoked: 20 years e-Cigarette/Vaping Use: Never Used service: No Current occupational status: retired Current occupation: Right Handed Cognitive needs: No Hearing needs: No Vision needs: Yes Questionnaire Thrive Questionnaire Date Thrive assessed: 01/17/24 AUDIT C Alcohol Use Questionnaire (AUDIT-C) 1. How often do you have a drink containing alcohol?: Never 3. How often do you have six or more drinks on one occasion?: Never Total Score: 0 Score Reviewed/Action Taken: Yes PATRICIA-7 AMB Questionnaire PATRICIA-7 Date PATRICIA - 7 assessed: 01/17/24 Source: Developed by Drs. Abiel Christensen, Malu Ram, Jean-Pierre Higginbotham and colleagues, with an educational zuleyma from [employer]. Review of Systems Const Denies chills and Denies fever(s) ENT Denies epistaxis and Denies nasal discharge Card Denies chest pain Resp Denies chest congestion, Denies cough and Denies hemoptysis GI Denies diarrhea and Denies nausea Skin/Breast Denies rash Neuro Reports no additional complaints Psych Reports no additional complaints Endo Reports no additional complaints Physical exam (Primary Care) Vital Signs: Last Vital Signs Pulse 66 08/01/24 09:45 BP 142/70 H 08/01/24 09:45 Pulse Ox 97 08/01/24 09:45 Oxygen Delivery Method Room Air 08/01/24 09:45 BMI result Body Mass Index 29.1 Tobacco/Smoking Status: Tobacco use Status Tobacco use date assessed 08/01/24 08/01/24 09:49 Patient Tobacco Use Status Former Tobacco user (30 08/01/24 09:49 years ago ) Tobacco use type Cigarette 08/01/24 09:49 e-Cigarette/Vaping Use Never Used 08/01/24 09:49 Thrive Assessment: Date of Thrive Assessment Date Thrive assessed 01/17/24 08/01/24 09:49 Const General: cooperative, comfortable and no acute distress Orientation/consciousness: patient oriented x3 HENMT Head: Yes normocephalic Eyes General: appearance normal, both eyes and all related structures Neck Neck: Yes supple Resp Effort & Inspection: normal respiratory effort, no cough and no stridor Cardio Rhythm: regular rhythm Heart sounds: S1 normal heart sound present and S2 normal heart sound present Skin General skin exam: turgor normal Neuro General: patient oriented x3, tone normal and moves all extremities Assessment and Plan Assessment & Plan (1) Nephropathy: Code(s): N28.9 - Disorder of kidney and ureter, unspecified (2) Diabetes 1.5, managed as type 2: Code(s): E13.9 - Other specified diabetes mellitus without complications (3) Hypertension, essential: Code(s): I10 - Essential (primary) hypertension (4) Lipid disorder: Code(s): E78.9 - Disorder of lipoprotein metabolism, unspecified (5) Other specified hypothyroidism: Code(s): E03.8 - Other specified hypothyroidism (6) Osteoarthritis of knees, bilateral: Code(s): M17.0 - Bilateral primary osteoarthritis of knee Qualifiers: Osteoarthritis type: primary Qualified Code(s): M17.0 - Bilateral primary osteoarthritis of knee (7) Microalbuminuria: Code(s): R80.9 - Proteinuria, unspecified (8) Cardiac pacemaker in situ: Code(s): Z95.0 - Presence of cardiac pacemaker Plan Patient is 89-year-old female came in today for her regular follow-up visit.? GFR was checked June of this year it was 44 Diabetes mellitus:? I am changing the diabetic medication to glipizide slower release 5 mg once a day and we will stop metformin Hemoglobin A1c is in 6.9 range Hypertension:? Patient is on amlodipine 10 mg , she does have mild swelling of left ankle, which is not bothering her. Also taking olmesartan 20 mg, Hypothyroidism:? Patient is on levothyroxine 100 mcg.?, TSH is within normal limit She does have microalbuminuria as well.? Stable Cardiac pacemaker in place patient's quality assurance manager is? Dr. Gentile at [facility] She lives alone and is able to do her groceries however her son lives downstairs she is living in a duplex Follow-up 4 months, labs are needed before visit Orders: Orders Hemoglobin A1c Today E13.9 - Other specified diabetes mellitus without complications, E78.9 - Disorder of lipoprotein metabolism, unspecified, I10 - Essential (primary) hypertension, N28.9 - Disorder of kidney and ureter, unspecified Complete Blood Count Auto Diff Today E13.9 - Other specified diabetes mellitus without complications, E78.9 - Disorder of lipoprotein metabolism, unspecified, I10 - Essential (primary) hypertension, N28.9 - Disorder of kidney and ureter, unspecified Comprehensive Met. Panel Today E13.9 - Other specified diabetes mellitus without complications, E78.9 - Disorder of lipoprotein metabolism, unspecified, I10 - Essential (primary) hypertension, N28.9 - Disorder of kidney and ureter, unspecified TSH reflex Free T4 Today E03.8 - Other specified hypothyroidism Medications: New glipizide ER 5 mg PO DAILY 90 tabs 0RF Discontinued glipizide-metformin 2.5-500 mg Discontinued Reason: Doctor's Order 1 tab PO BID 90 days 180 tabs 0RF E13.9 - Other specified diabetes mellitus without complications Coding Level of Care Code Est Pt Level 4 (28105) Complex EM visit Add On G2211 Diagnoses Nephropathy N28.9 Diabetes 1.5, managed as type 2 E13.9 Hypertension, essential I10 Lipid disorder E78.9 Other specified hypothyroidism E03.8 Primary osteoarthritis of both knees M17.0 Osteoarthritis type: primary Microalbuminuria R80.9 Cardiac pacemaker in situ Z95.0
== END 2024-08-01 10:05 | disposition home or self-care (01) ==
PROVIDERS: PCP Internal Medicine; Visit Provider Internal Medicine
DX: N28.9 Disorder of kidney and ureter, unspecified (principal); E13.9 Other specified diabetes mellitus without complications; I10 Essential (primary) hypertension; E78.9 Disorder of lipoprotein metabolism, unspecified; E03.8 Other specified hypothyroidism; M17.0 Bilateral primary osteoarthritis of knee; R80.9 Proteinuria, unspecified; Z95.0 Presence of cardiac pacemaker
CPT/HCPCS: 99214; G2211

== ENCOUNTER 2024-11-23 09:14 | Outpatient (REF) | payer MEDICARE, OTHER, SELFPAY ==
[2024-11-23 10:04] LABS: MANUAL DIFF FLAG NO
[2024-11-23 10:12] LABS: Basophils Absolute Auto 0.1 X10*3/uL (0.0-0.2); Basophils Percent Auto 0.5 % (0-2); Hematocrit 36.5 % (37.0-47.0); Hemoglobin 12.2 g/dl (12.0-16.0); Imm Gran Abs Auto 0.05 X10*3/uL (0.00-0.03); Imm Gran Pct Auto 0.5 % (0.0-0.4); Lymphocytes Absolute Auto 3.3 X10*3/uL (1.2-4.9); Lymphocytes Percent Auto 33.7 % (20-40); Mean Corpuscular HGB Conc 33.4 g/dl (31.0-35.0); Mean Corpuscular Hemoglobin 30.1 pg (27.0-33.0); Mean Corpuscular Volume 90.1 fL (80.0-98.0); Mean Platelet Volume 9.4 fL (9.4-12.3); Monocytes Absolute Auto 0.6 X10*3/uL (0.1-1.2); Monocytes Percent Auto 6.2 % (2-11); Neutrophils Absolute Auto 5.8 x10*3/uL (2.0-8.3); Neutrophils Percent Auto 59.1 % (45-73); Platelet Count 223 X10*3/uL (160-400); Red Blood Count 4.05 X10*6/uL (4.20-5.50); White Blood Count 9.8 X10*3/uL (4.8-10.8)
[2024-11-23 10:46] LABS: Alanine Aminotransferase 16 U/L (0-31); Albumin Level 4.3 g/dL (3.5-5.0); Alkaline Phosphatase 132 U/L (39-117); Anion Gap 12 (12-20); Aspartate Amino Transferase 21 U/L (5-31); Bilirubin Total 0.6 mg/dL (0.0-1.0); Blood Urea Nitrogen 26 mg/dL (9-16); Calcium 9.8 mg/dL (8.4-10.2); Carbon Dioxide 25 mmol/L (22-29); Chloride 106 mmol/L (96-108); Estimated Glomerular Filt Rate 37; Glucose Random 175 mg/dL (60-115); Potassium 4.1 mmol/L (3.3-5.1); Sodium 139 mmol/L (135-145); Total Protein 7.4 g/dL (6.5-8.0)
[2024-11-23 11:05] LABS: TSH reflex Free T4 1.95 uIU/mL (0.32-4.0)
[2024-11-23 11:49] LABS: Estimated Average Glucose 203 mg/dL; Hemoglobin A1C 224.3771 umol/L; Hemoglobin A1c % 8.7 % (<6.0); Total Hemoglobin (HGBA1C) 3152.6089 umol/L
== END 2024-11-23 09:15 | disposition home or self-care (01) ==
LOC: HO.HMGCLDS 09:14
PROVIDERS: PCP Internal Medicine; Visit Provider Internal Medicine
DX: N28.9 Disorder of kidney and ureter, unspecified (principal); E13.9 Other specified diabetes mellitus without complications; I10 Essential (primary) hypertension; E78.9 Disorder of lipoprotein metabolism, unspecified; E03.8 Other specified hypothyroidism
CPT/HCPCS: 36415; 80053; 83036; 84443; 85025

== ENCOUNTER 2024-12-04 09:40 | Outpatient (AMB) | payer MEDICARE, OTHER, SELFPAY ==
[2024-12-04 09:44] VITALS: BP 148/64; PULSE 92; O2SAT 96; BMI 29.0
--- NOTE | 2024-12-04 09:44 | MHC.PC.OV ---
Vital Signs 12/04/24 09:44 Height 5 ft 5 in Weight 174 lb 8 oz BMI 29.0 BP 148/64 H Blood Pressure Location Lt brachial Position Sitting Pulse 92 Pulse Source Pulse Oximeter Pulse Oximetry (%) 96 Oxygen Delivery Method Room Air Intake Visit Reasons: 4 month follow up Allergies No Known Allergies Allergy (Mild, Verified 12/04/24 09:45) NA Medication List - Last Reconciled 12/04/24 by Yves Arce MD amlodipine 10 mg PO DAILY 90 days atorvastatin 40 mg PO DAILY 90 days blood sugar diagnostic As directed blood sugar diagnostic (Accu-Chek Suzi Plus test strips) Patient to check blood sugar once daily blood-glucose meter As directed glipizide ER 5 mg PO DAILY lancets As directed lancets (Accu-Chek Softclix Lancets) Patient to check blood sugar once daily levothyroxine (Levoxyl) 100 mcg PO DAILY 90 days olmesartan 20 mg PO DAILY Tobacco use date assessed: 12/04/24 Fall risk assessment: No Falls in past year Last assessed Fall Risk: 12/04/24 Dental Screening Dental Screen Date: 12/04/24 Did you have a dental visit in the last 12 months?: Yes Did you have a dental problem in the last 6 months where you did not have access to dental care?: No Was dental information given to patient?: Patient has dentist HPI 4 month follow up HPI Details History - bulleted - The patient is an 89-year-old female presenting with a regular follow-up appointment. - Type 2 Diabetes Mellitus: Hemoglobin A1c increased to 8.7 from 6.9 since discontinuing metformin; current blood glucose readings are 150-160 mg/dL or higher; previous management included metformin. - Chronic Kidney Disease: Worsening kidney function with a decrease in glomerular filtration rate from 44 in June to 37 in October; patient is not under the care of a carbon sequestration plant engineer. And declined to see one - Essential Hypertension: Blood pressure recorded as 148 on the day of the visit; patient is on olmesartan; patient has not monitored blood pressure at home recently; previous adjustments discussed. Review of Systems Cardiovascular: Denies chest pains, denies shortness of breath. Gastrointestinal: Denies nausea, vomiting. - General: No fever no chills - Neurological: No headaches no dizziness - Ear nose throat: No sore throat no hearing difficulty no ear pain - Endocrine: No polyuria polydipsia no heat intolerance - Genitourinary: No dysuria , no blood in urine Physical Exam - General: No acute distress - HEENT: No acute findings - Neck: Supple - Respiratory system: Able to talk in full sentences, no audible wheeze - cardiovascular: S1-S2 regular in rate and rhythm - Gastrointestinal: No pain - Extremities: No new findings - CUSTOMER SERVICE ADVOCATE: Alert awake oriented x3 motor sensory intact - Skin: Normal turgor Patient Instructions - Increase glipizide dosage to improve diabetes control; increased from 5 mg to 10 mg, follow provided instructions. - Monitor blood pressure at home and bring records during next visit. - Schedule and complete a blood test in three months. - Call with blood pressure readings in one week to 10 days. 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 Son No problems noted. Son No problems noted. Son No problems noted. Son No problems noted. Social History Housing: House Alcohol intake: never Patient Tobacco Use Status: Former Tobacco user (30 years ago ) Tobacco use type: Cigarette Years Smoked: 20 years e-Cigarette/Vaping Use: Never Used service: No Current occupational status: retired Current occupation: Right Handed Cognitive needs: No Hearing needs: No Vision needs: Yes Questionnaire PHQ-9 Over the last 2 weeks, how often have you been bothered by any of the following problems? 1. Little interest or pleasure in doing things: not at all 2. Feeling down, depressed, or hopeless: not at all 3. Trouble falling or staying asleep, or sleeping too much: not at all 4. Feeling tired or having little energy: not at all 5. Poor appetite or overeating: not at all 6. Feeling bad about yourself - or that you are a failure or have let yourself or your family down: not at all 7. Trouble concentrating on things, such as reading the newspaper or watching television: not at all 8. Moving or speaking so slowly that other people could have noticed. Or the opposite - being so fidgety or restless that you have been moving around a lot more than usual: not at all 9. Thoughts that you would be better off or of hurting yourself in some way: not at all Total score: 0 Depression Screening Interpretation: Negative Depression Screening Done: Yes 16020 - PHQ-9 Billing: Yes Source: Developed by Drs. Abiel Christensen, Malu Ram, Jean-Pierre Higginbotham and colleagues, with an educational zuleyma from [employer]. Thrive Questionnaire Date Thrive assessed: 12/04/24 I am a: Patient What is your living situation today?: I have a steady place to live Within the past 12 months, did the food you bought not last and you didn't have the money to get more?: Never true Within the past 12 months, did you worry whether your food would run out before you got money to buy more?: Never true Do you have trouble paying for medicines?: No Do you have trouble getting transportation to medical appointments?: No Do you have trouble paying your heating and electricity bill?: No Do you have trouble taking care of your child, family member or friend?: No Do you have trouble with day-to-day activities such as bathing, preparing meals, shopping, managing finances, etc.?: No Are you currently unemployed and looking for a job?: No Are you interested in more education?: No Please select the resources that you would like help with: None Currently or been in a relationship where the following occur: No concerns reported THRIVE Score: 0 AUDIT C Alcohol Use Questionnaire (AUDIT-C) 1. How often do you have a drink containing alcohol?: Never 3. How often do you have six or more drinks on one occasion?: Never Total Score: 0 Score Reviewed/Action Taken: Yes PATRICIA-7 AMB Questionnaire PATRICIA-7 Date PATRICIA - 7 assessed: 12/04/24 Feeling nervous, anxious, or on edge: 0 = Not at all Not being able to stop or control worryin = Not at all Worrying too much about different things: 0 = Not at all Trouble relaxin = Not at all Being so restless that it is hard to sit still: 0 = Not at all Becoming easily annoyed or irritable: 0 = Not at all Feeling afraid as if something awful might happen: 0 = Not at all Total PATRICIA-7 score (0-4 normal; 5-9 mild; 10-14 moderate; 15-21 severe): 0 Source: Developed by Drs. Abiel Christensen, Malu Ram, Jean-Pierre Higginbotham and colleagues, with an educational zuleyma from [employer]. PATRICIA-7 Assessment Billing PATRICIA-7 Assessment Tool: PATRICIA-7 Assessment 69612 Physical exam (Primary Care) Vital Signs: Last Vital Signs Pulse 92 12/04/24 09:44 BP 148/64 H 12/04/24 09:44 Pulse Ox 96 12/04/24 09:44 Oxygen Delivery Method Room Air 12/04/24 09:44 BMI result Body Mass Index 29.0 Tobacco/Smoking Status: Tobacco use Status Tobacco use date assessed 12/04/24 12/04/24 09:48 Patient Tobacco Use Status Former Tobacco user (30 12/04/24 09:48 years ago ) Tobacco use type Cigarette 12/04/24 09:48 e-Cigarette/Vaping Use Never Used 12/04/24 09:48 PHQ-9: PHQ-9 Score PHQ-9: Total score 0 12/04/24 09:48 Depression Screening Interpretation: Negative Thrive Assessment: Date of Thrive Assessment Date Thrive assessed 12/04/24 12/04/24 09:48 Currently or been in a relationship where the following occur: No concerns reported Coding Level of Care Code Est Pt Level 4 (29373) Complex EM visit Add On G2211 Diagnoses Diabetes 1.5, managed as type 2 E13.9 Hypertension, essential I10 Other specified hypothyroidism E03.8 Lipid disorder E78.9 Microalbuminuria R80.9 Nephropathy N28.9 Cardiac pacemaker in situ Z95.0 Additional Codes PATRICIA-7 Assessment Billing - PATRICIA-7 Assessment Tool: PATRICIA-7 Assessment 25924 ([id number]) PHQ-9 - 11873 - PHQ-9 Billing: Yes ([id number]) Assessment & Plan Assessment & Plan (1) Diabetes 1.5, managed as type 2: Code(s): E13.9 - Other specified diabetes mellitus without complications Category: Medical (2) Hypertension, essential: Code(s): I10 - Essential (primary) hypertension Category: Medical (3) Other specified hypothyroidism: Code(s): E03.8 - Other specified hypothyroidism Category: Medical (4) Lipid disorder: Code(s): E78.9 - Disorder of lipoprotein metabolism, unspecified Category: Medical (5) Microalbuminuria: Code(s): R80.9 - Proteinuria, unspecified Category: Medical (6) Nephropathy: Code(s): N28.9 - Disorder of kidney and ureter, unspecified Category: Medical (7) Cardiac pacemaker in situ: Code(s): Z95.0 - Presence of cardiac pacemaker Category: Medical Plan History - bulleted - The patient is an 89-year-old female presenting with a regular follow-up appointment. - Type 2 Diabetes Mellitus: Hemoglobin A1c increased to 8.7 from 6.9 since discontinuing metformin; current blood glucose readings are 150-160 mg/dL or higher; previous management included metformin. - Chronic Kidney Disease: Worsening kidney function with a decrease in glomerular filtration rate from 44 in June to 37 in October; patient is not under the care of a carbon sequestration plant engineer. And declined to see one - Essential Hypertension: Blood pressure recorded as 148 on the day of the visit; patient is on olmesartan; patient has not monitored blood pressure at home recently; previous adjustments discussed. Review of Systems Cardiovascular: Denies chest pains, denies shortness of breath. Gastrointestinal: Denies nausea, vomiting. - General: No fever no chills - Neurological: No headaches no dizziness - Ear nose throat: No sore throat no hearing difficulty no ear pain - Endocrine: No polyuria polydipsia no heat intolerance - Genitourinary: No dysuria , no blood in urine Physical Exam - General: No acute distress - HEENT: No acute findings - Neck: Supple - Respiratory system: Able to talk in full sentences, no audible wheeze - cardiovascular: S1-S2 regular in rate and rhythm - Gastrointestinal: No pain - Extremities: No new findings - CUSTOMER SERVICE ADVOCATE: Alert awake oriented x3 motor sensory intact - Skin: Normal turgor Patient Instructions - Increase glipizide dosage to improve diabetes control; increased from 5 mg to 10 mg, follow provided instructions. - Monitor blood pressure at home and bring records during next visit. - Schedule and complete a blood test in three months. - Call with blood pressure readings in one week to 10 days. - Ensure proper intake of all prescribed medications and report any adverse effects - olmesartan dose increased from 20-40 mg - continue levothyroxine for hypothyroidism Follow-up January, lab order placed to be done fasting before visit Orders: Orders Comprehensive [place]. Panel Fast Today E03.8 - Other specified hypothyroidism, E13.9 - Other specified diabetes mellitus without complications, E78.9 - Disorder of lipoprotein metabolism, unspecified, I10 - Essential (primary) hypertension, N28.9 - Disorder of kidney and ureter, unspecified, R80.9 - Proteinuria, unspecified, Z95.0 - Presence of cardiac pacemaker Microalbumin, Random (w Creat) Today E03.8 - Other specified hypothyroidism, E13.9 - Other specified diabetes mellitus without complications, E78.9 - Disorder of lipoprotein metabolism, unspecified, I10 - Essential (primary) hypertension, N28.9 - Disorder of kidney and ureter, unspecified, R80.9 - Proteinuria, unspecified, Z95.0 - Presence of cardiac pacemaker Hemoglobin A1c Today E03.8 - Other specified hypothyroidism, E13.9 - Other specified diabetes mellitus without complications, E78.9 - Disorder of lipoprotein metabolism, unspecified, I10 - Essential (primary) hypertension, N28.9 - Disorder of kidney and ureter, unspecified, R80.9 - Proteinuria, unspecified, Z95.0 - Presence of cardiac pacemaker Complete Blood Count Auto Diff Today E03.8 - Other specified hypothyroidism, E13.9 - Other specified diabetes mellitus without complications, E78.9 - Disorder of lipoprotein metabolism, unspecified, I10 - Essential (primary) hypertension, N28.9 - Disorder of kidney and ureter, unspecified, R80.9 - Proteinuria, unspecified, Z95.0 - Presence of cardiac pacemaker Lipid Panel Today E03.8 - Other specified hypothyroidism, E13.9 - Other specified diabetes mellitus without complications, E78.9 - Disorder of lipoprotein metabolism, unspecified, I10 - Essential (primary) hypertension, N28.9 - Disorder of kidney and ureter, unspecified, R80.9 - Proteinuria, unspecified, Z95.0 - Presence of cardiac pacemaker TSH reflex Free T4 Today E03.8 - Other specified hypothyroidism, E13.9 - Other specified diabetes mellitus without complications, E78.9 - Disorder of lipoprotein metabolism, unspecified, I10 - Essential (primary) hypertension, N28.9 - Disorder of kidney and ureter, unspecified, R80.9 - Proteinuria, unspecified, Z95.0 - Presence of cardiac pacemaker Medications: Changed From olmesartan 20 mg PO DAILY 90 tabs 0RF To olmesartan 40 mg PO DAILY 90 tabs 0RF From glipizide ER 5 mg PO DAILY 90 tabs 0RF To glipizide ER 10 mg PO DAILY 90 tabs 0RF
== END 2024-12-04 10:04 | disposition home or self-care (01) ==
PROVIDERS: PCP Internal Medicine; Visit Provider Internal Medicine
DX: E13.9 Other specified diabetes mellitus without complications (principal); I10 Essential (primary) hypertension; E03.8 Other specified hypothyroidism; E78.9 Disorder of lipoprotein metabolism, unspecified; R80.9 Proteinuria, unspecified; N28.9 Disorder of kidney and ureter, unspecified; Z95.0 Presence of cardiac pacemaker

== ENCOUNTER → 2024-12-04 09:40 | Outpatient (BNVA) | payer MEDICARE, OTHER, SELFPAY | PROVIDERS: PCP Internal Medicine; Visit Provider Internal Medicine | DX: E11.22 Type 2 diabetes mellitus with diabetic chronic kidney disease (principal); I12.9 Hypertensive chronic kidney disease with stage 1 through stage 4 chronic kidney disease, or unspecified chronic kidney disease; N18.9 Chronic kidney disease, unspecified; E03.8 Other specified hypothyroidism; E78.9 Disorder of lipoprotein metabolism, unspecified; R80.9 Proteinuria, unspecified; N28.9 Disorder of kidney and ureter, unspecified; Z95.0 Presence of cardiac pacemaker | CPT/HCPCS: 96127; 99212 ==

== ENCOUNTER 2025-02-14 07:57 | Outpatient (REF) | payer MEDICARE, OTHER, SELFPAY ==
[2025-02-14 10:10] LABS: MANUAL DIFF FLAG NO
[2025-02-14 10:21] LABS: Basophils Absolute Auto 0.1 X10*3/uL (0.0-0.2); Basophils Percent Auto 0.5 % (0-2); Hematocrit 35.3 % (37.0-47.0); Hemoglobin 11.5 g/dl (12.0-16.0); Imm Gran Abs Auto 0.03 X10*3/uL (0.00-0.03); Imm Gran Pct Auto 0.3 % (0.0-0.4); Lymphocytes Absolute Auto 3.5 X10*3/uL (1.2-4.9); Lymphocytes Percent Auto 38.2 % (20-40); Mean Corpuscular HGB Conc 32.6 g/dl (31.0-35.0); Mean Corpuscular Hemoglobin 29.7 pg (27.0-33.0); Mean Corpuscular Volume 91.2 fL (80.0-98.0); Mean Platelet Volume 9.8 fL (9.4-12.3); Monocytes Absolute Auto 0.6 X10*3/uL (0.1-1.2); Monocytes Percent Auto 6.4 % (2-11); Neutrophils Absolute Auto 5.1 x10*3/uL (2.0-8.3); Neutrophils Percent Auto 54.6 % (45-73); Platelet Count 216 X10*3/uL (160-400); Red Blood Count 3.87 X10*6/uL (4.20-5.50); White Blood Count 9.3 X10*3/uL (4.8-10.8)
[2025-02-14 10:23] LABS: Estimated Average Glucose 197 mg/dL; Hemoglobin A1c % 8.5 % (<6.0)
[2025-02-14 10:58] LABS: Alanine Aminotransferase 19 U/L (0-31); Albumin Level 4.2 g/dL (3.5-5.0); Alkaline Phosphatase 138 U/L (39-117); Anion Gap 13 (12-20); Aspartate Amino Transferase 23 U/L (5-31); Bilirubin Total 0.9 mg/dL (0.0-1.0); Blood Urea Nitrogen 25 mg/dL (9-16); Calcium 9.8 mg/dL (8.4-10.2); Carbon Dioxide 22 mmol/L (22-29); Chloride 108 mmol/L (96-108); Cholesterol 143 mg/dL (<200); Estimated Glomerular Filt Rate 34; Glucose Fasting 200 mg/dL (60-99); HDL Cholesterol 53 mg/dL (>40); LDL Cholesterol Calculated 65 mg/dL (<100); Potassium 4.1 mmol/L (3.3-5.1); Sodium 139 mmol/L (135-145); TSH reflex Free T4 1.84 uIU/mL (0.32-4.0); Total Protein 7.7 g/dL (6.5-8.0); Triglycerides 125 mg/dL (<150)
[2025-02-14 10:59] LABS: Creatinine Urine 67.72 mg/dL; Microalbum/Creatinine Ratio Ur 150.6 ug/mg cr (<30)
== END 2025-02-14 07:58 | disposition home or self-care (01) ==
LOC: HO.HMGCLDS 07:57
PROVIDERS: PCP Internal Medicine; Visit Provider Internal Medicine
DX: E13.9 Other specified diabetes mellitus without complications (principal); I10 Essential (primary) hypertension; E03.8 Other specified hypothyroidism; E78.9 Disorder of lipoprotein metabolism, unspecified; R80.9 Proteinuria, unspecified; N28.9 Disorder of kidney and ureter, unspecified; Z95.0 Presence of cardiac pacemaker
CPT/HCPCS: 36415; 80053; 80061; 82043; 82570; 83036; 84443; 85025

== ENCOUNTER 2025-02-20 10:08 | Outpatient (AMB) | payer MEDICARE, OTHER, SELFPAY ==
--- NOTE | 2025-02-20 10:09 | A.OFFPC_ITS ---
Vital Signs 02/20/25 10:10 Height 5 ft 5 in Weight 174 lb 8 oz BMI 29.0 BP 136/64 Blood Pressure Location Lt brachial Position Sitting Pulse 91 Pulse Source Pulse Oximeter Pulse Oximetry (%) 96 Oxygen Delivery Method Room Air Intake Visit Reasons: 2 month follow up Bottom Loader Required: No Accompanied by: Self / Same As Patient Allergies No Known Allergies Allergy (Mild, Verified 02/20/25 10:10) NA Medication List - Last Reconciled 02/20/25 by Yves Arce MD amlodipine 10 mg PO DAILY 90 days atorvastatin 40 mg PO DAILY 90 days blood sugar diagnostic As directed blood sugar diagnostic (Accu-Chek Suzi Plus test strips) Patient to check blood sugar once daily blood-glucose meter As directed glipizide ER 10 mg PO DAILY lancets As directed lancets (Accu-Chek Softclix Lancets) Patient to check blood sugar once daily levothyroxine (Levoxyl) 100 mcg PO DAILY 90 days olmesartan 40 mg PO DAILY Tobacco use date assessed: 02/20/25 Fall risk assessment: No Falls in past year Last assessed Fall Risk: 02/20/25 Dental Screening Dental Screen Date: 12/04/24 HPI 2 month follow up HPI Details History - The patient is an 89-year-old female p resenting with concerns related to Type 2 Diabetes Mellitus management. - Reports morning fasting blood glucose levels consistently above 150 mg/dL. - Current medication regimen includes gl ipizide increased from 5 mg to 10 mg since November, with recent fasting blood glucose at 200 mg/dL and HbA1c at 8.5%. - Essential Hypertension is currently we ll-controlled with a blood pressure of approximately 120/60 mmHg. - The patient notes improved gastrointes tinal symptoms following the cessation of metformin. - Chronic Kidney Disease management cont inues, with kidney functions reported as stable. - TSH WNL Problem List - Type 2 Diabetes Mellitus - Essential Hypertension - Hypothyroidism - Chronic Kidney Disease Patient Instructions - Begin taking an additional 5 mg of gli pizide at night and monitor fasting blood glucose levels. - If sugar levels remain high, consider adjusting glipizide to 10 mg twice daily and inform the clinician. - Check blood glucose two hours postpran dially after supper at 9:00 PM and record all readings. - Continue current medications: olmesart an 40 mg for blood pressure and levothyroxine 100 mg for hypothyroidism. - Attend a follow-up appointment on April 26 for a physical examination. Review of Systems - General: No fever no chills - Neurological: No headaches no dizziness - Ear nose throat: No sore throat no hearing difficulty no ear pain - Cardiovascular: No syncope, no chest pain, no palpitations - Gastrointestinal: No nausea vomiting or diarrhea - Endocrine: No polyuria polydipsia no heat intolerance - Genitourinary: No dysuria , no blood in urine Physical Exam General: No acute distress HEENT: No acute findings Neck: Supple Respiratory system: Able to talk in full sentences, no audible wheeze Cardiovascular: S1-S2 regular in rate and rhythm, blood pressure 120/55-60 Gastrointestinal: No pain Extremities: No new findings SMOOTH PLATER: Alert awake oriented x3 motor sensory intact Skin: Normal turgor [facility] Medical History Microalbuminuria Osteoarthritis of knees, bilateral 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 Son No problems noted. Son No problems noted. Son No problems noted. Son No problems noted. Social History Housing: House Alcohol intake: never Patient Tobacco Use Status: Former Tobacco user (30 years ago ) Tobacco use type: Cigarette Years Smoked: 20 years e-Cigarette/Vaping Use: Never Used service: No Current occupational status: retired Current occupation: Right Handed Cognitive needs: No Hearing needs: No Vision needs: Yes Questionnaire Thrive Questionnaire Date Thrive assessed: 12/04/24 PATRICIA-7 AMB Questionnaire PATRICIA-7 Date PATRICIA - 7 assessed: 12/04/24 Source: Developed by Drs. Abiel Christensen, Malu Ram, Jean-Pierre Higginbotham and colleagues, with an educational zuleyma from [employer]. Physical exam (Primary Care) Vital Signs: Last Vital Signs Pulse 91 02/20/25 10:10 BP 136/64 02/20/25 10:10 Pulse Ox 96 02/20/25 10:10 Oxygen Delivery Method Room Air 02/20/25 10:10 BMI result Body Mass Index 29.0 Tobacco/Smoking Status: Tobacco use Status Tobacco use date assessed 02/20/25 02/20/25 10:11 Patient Tobacco Use Status Former Tobacco user (30 02/20/25 10:11 years ago ) Tobacco use type Cigarette 02/20/25 10:11 e-Cigarette/Vaping Use Never Used 02/20/25 10:11 Thrive Assessment: Date of Thrive Assessment Date Thrive assessed 12/04/24 02/20/25 10:11 Coding Level of Care Code Est Pt Level 4 (48833) Complex EM visit Add On G2211 Diagnoses Diabetes 1.5, managed as type 2 E13.9 Hypertension, essential I10 Other specified hypothyroidism E03.8 Lipid disorder E78.9 Microalbuminuria R80.9 Nephropathy N28.9 Cardiac pacemaker in situ Z95.0 Assessment & Plan Assessment & Plan (1) Diabetes 1.5, managed as type 2: Code(s): E13.9 - Other specified diabetes mellitus without complications Category: Medical (2) Hypertension, essential: Code(s): I10 - Essential (primary) hypertension Category: Medical (3) Other specified hypothyroidism: Code(s): E03.8 - Other specified hypothyroidism Category: Medical (4) Lipid disorder: Code(s): E78.9 - Disorder of lipoprotein metabolism, unspecified Category: Medical (5) Microalbuminuria: Code(s): R80.9 - Proteinuria, unspecified Category: Medical (6) Nephropathy: Code(s): N28.9 - Disorder of kidney and ureter, unspecified Category: Medical (7) Cardiac pacemaker in situ: Code(s): Z95.0 - Presence of cardiac pacemaker Category: Medical Plan History - The patient is an 89-year-old female presenting with concerns related to Type 2 Diabetes Mellitus management. - Reports morning fasting blood glucose levels consistently above 150 mg/dL. - Current medication regimen includes glipizide increased from 5 mg to 10 mg since November, with recent fasting blood glucose at 200 mg/dL and HbA1c at 8.5%. - Essential Hypertension is currently well-controlled with a blood pressure of approximately 120/60 mmHg. - The patient notes improved gastrointestinal symptoms following the cessation of metformin. - Chronic Kidney Disease management continues, with kidney functions reported as stable. - TSH WNL Problem List - Type 2 Diabetes Mellitus - Essential Hypertension - Hypothyroidism - Chronic Kidney Disease Patient Instructions - Begin taking an additional 5 mg of glipizide at night and monitor fasting blood glucose levels. - If sugar levels remain high, consider adjusting glipizide to 10 mg twice daily and inform the clinician. - Check blood glucose two hours postprandially after supper at 9:00 PM and record all readings. - Continue current medications: olmesartan 40 mg for blood pressure and levothyroxine 100 mg for hypothyroidism. - Attend a follow-up appointment on April 26 for a physical examination. Medications: Changed From glipizide ER 10 mg PO DAILY 90 tabs 0RF To glipizide ER 10 mg PO BID 180 tabs 1RF 90 days
[2025-02-20 10:10] VITALS: BP 136/64; PULSE 91; O2SAT 96; BMI 29.0
--- OUTSIDE RECORDS SUMMARY | 2025-02-20 11:39 | XMS_ITS ---
Author Organization [facility] Address [address] [place] [address] Care Team Providers Care Reference Librarian Name Role Phone Claude NANCE, Asma Primary Care Provider Cindy Glass Unavailable [phone] Allergies No Known Allergies REASON FOR VISIT At Risk Footcare, Painful Nail(s) aggravated by shoes and causing difficulty standing/walking., Wart(s) Medications Medication SIG (Take, Route, Frequency, Duration) Notes Start Date End Date Status Extra Depth Orthopedic Shoes (1 Pair) with Customized Heat Molded Multidensity Innersoles (3 Pair) as directed Dx: NIDDM/PVD (E11.59), Hammertoe Foot Deformity (M20.41,M20.42), Preulcerative Skin Lesion(s) (L85.1) 01/07/2021 Not-Taking Benicar 20 MG 1 tablet Orally Once a day for 30 day(s) Not-Taking metFORMIN HCl 500 MG 1 tablet with a jus l Orally Once a day for 30 day(s) Not-Taking Extra Depth Orthopedic Shoes (1 Pair) with Customized Heat Molded Multidensity Innersoles (3 Pair) as directed Dx: NIDDM/PVD (E11.59), Hammertoe Foot Deformity (M20.41,M20.42), Preulcerative Skin Lesion(s) (L85.1) 05/07/2022 Active Levoxyl 100 MCG 1 tablet in the morn ing on an empty stomach Orally Once a day for 30 day(s) Active Calcium + D Active glipiZIDE Active Atorvastatin Calcium 40 MG 1 tablet Orally Once a day for 30 day(s) Active amLODIPine Besylate 5 MG 1 tablet Orally Once a day for 30 day(s) Active Social History Tobacco Use: Social History Observation Description Date Details (start date - stop date) Former Smoker NA - NA Tobacco Use/Smoking Question Answer Notes Are you a: former smoker Additional Findings: Tobacco Non-User Current no n-smoker Tobacco use other than smoking: Question Answer Notes Are you an other tobacco user? No Vital Signs Height 5 ft 5 in in 11/16/2024 Weight 170 lbs 11/16/2024 BMI 28.29 kg/m2 11/16/2024 Blood pressure systolic 134 mm Hg 11/16/20 24 Blood pressure diastolic 82 mm Hg 024 Encounters Encounter Location Date Provider Diagnosis [facility] [address] [place] [address] 11/16/2024 Cindy Pruett Type 2 diabetes mellitus with diabetic peripheral angiopathy without gangrene E11.51 ; Atherosclerosis of [place] artery of both lower extremities, with unspecified presence of clinical manifestation I70.203 ; Plantar wart B07.0 and Pain in left foot M79.672 Assessments Encounter Date Diagnosis (ICD Code) Assessment Notes Treatment Notes Treatment Clinical Notes Section Notes 11/16/2024 Type 2 diabetes mellitus with diabetic peripheral angiopathy without gangrene (ICD-10 - E11.51) 11/16/2024 Atherosclerosis of [place] artery of both lower extremities, with unspecified presence of clinical manifestation (ICD-10 - I70.203) 11/16/2024 Plantar wart (ICD-10 - B07.0) 11/16/2024 Pain in left foot (ICD-10 - M79.672) Plan Of Treatment Next Appt Details Follow Up: 2 Months, Reason: Provider Name:Cindy sainz, 05/01/2025 10:00:00 AM, [address] [place], [address], Procedure Notes * Category Sub-Category Detail Notes Wart Treatment Procedure Verrucae(s) were debrided to pin-point bleeding margins with sterile surgical blade, silver nitrate chemocautery applied, recomm. immune-boosting meds such as zinc, recomm. follow up with topical chemosurgical agents, Pt defers any other forms of tx (62897) Keratoma Treatment Parring or Cutting o f Benign Hyperkeratotic Lesion(s) (-56) 2-4 Lesions - Due to the at risk nature of the patients medical condition as documented in the exam findings, performance of this keratoderma treatment is medically necessary as its management by an unskilled/untrained nonprofessional would put this patients foot and overall health at risk. Therefore, the benign hyperkeratotic lesions, ( 2) in total, locations as stated and described in the exam ( TA, T5 ), were pared, and/or cut utilizing a sterile 15 blade, tissue nippers, and/or power dremel instrumentation by the physician of record - 97610 Nail Reduction Nail Reduction Trimming of dyst rophic nails performed to reduce/remove overall nail length and girth, by manual and electrical means with use of a nail nipper and/or dremel, to more viable healthy nail plate or bed tissue 6-10 ([id number]) Progress Notes * Blanca LERMA ADOB: [birth year] (89 yo F)Acc No.[id number]:11/16/2024 Progress Note Patient:?Blanca LERMA Provider:?Cindy Pruett DPM :1935???Age:89 Y???Sex:Female D ate:11/16/2024 Address:[address] [place], [place] [id number] Pcp:Yves Arce MD Subjective: * Chief Complaints: * ???At Risk FootcarePainful N ail(s) aggravated by shoes and causing difficulty standing/walking.Wart(s) * HPI: ???At Risk footcare:?Pt States Last PCP Visit:?Date?05/16/2024 * ROS:?General/Constitutional:?Nausea?denies.?Vomiting?denies.?Hunger Thirst?denies.?Loss appetite?denies.?Chills?denies.?Fatigue?denies.?Fever?denies.?Night Sweats?denies.?Unexplained weight loss?denies.?Unexplained weight gain?denies.?HEENTM:?Dentures?denies.?Dizziness?denies.?Glasses/contacts?denies.?Retinopathy?den ies.?Blurred/double vision?denies.?TMJ?denies.?Discharge/drainage?denies.?Implants?denies.?Sore throat?denies.?Dental implants?denies.?Hard of hearing ?denies.?Difficulty chewing/swallowing/speaking?denies.?Nose bleeds?denies.?Sore mouth?denies.?Respiratory:?On O xygen?denies.?Pneumonia/pleurisy?denies.?Bronchitis?denies.?Emphysema?denies.?Co ughing?denies.?Cough blood?denies.?Shortness of breath?denies.?Wheezing?denies.?Cardiovascular:?Pacemaker?denies.?MVP?denies.?WPW?denies.?CHF?denies.?Heart attack?denies.?Septal defect?denies.?Rapid beat?denies.?Chest pain ?denies.?Atrial Fib.?denies.?Murmur/Palpitations?denies.?Gastrointestinal:?Hemorrhoids?denies.?Stomach/Abdominal pain?denies.?Dark blood stool?denies.?Irritable bowel ?denies.?Constipation?denies.?Diarrhea?denies.?Hematology:?Swelling?denies.?Clots?denies.?Varicose Veins?denies.?Bruising?denies.?Bleeding problem?denies.?Genitourinary:?Blood urine?denies.?Frequent/Painfu/urination/bladder control?denies.?Kidney stones?denies.?Infection (UTI)?denies.?Nephropathy?denies.?sex trans dis (STD)?denies.?Prostate?denies.?Musculoskeletal:?Hammertoes?denies.?Bunions?denies.?Back Pain?denies.?Muscle Cramps/ Resting?denies.?Muscle cramps / walking?denies.?Generalized aches and pains?denies.?Weakness?denies.?Integ.:?Alba?denies.?Scars?denies.?Corns/calluses?denies.?Ingrown nails?denies.?Painful nails?denies.?Open Sores?denies.?Rashes?denies.?Neurologic:?Difficulty sleeping?denies.?Brain disorder?denies.?Numbness?denies.?Balance t rouble?denies.?Confusion?denies.?Fainting/blackouts?denies.?Tingling?denies.?Narendra mors?denies.? * Medical History:? * Surgical History:?skin patrice tracey 1918,191,06/2020cardiac pacemeker * Hospitalization/Major Diagno stic Procedure:?Denies Past Hospitalization * Family History:?Mother: dece ased, diagnosed with Diabetic - NIDDM, Family history of arthritis.?Father: , diagnosed with Diabetic - NIDDM, Family history of arthritis.? * Social History:?Tobacco Use:?Tobacco Use/Smoking?Are you a:?former smoker ?Additional Findings: Tobacco Non-User?Current non-smoker ?Tobacco use other than smoking?Are you an other tobacco user??No * Medications:?TakingglipiZIDE amLODIPine Besylate 5 MG Tablet 1 tablet Orally Once a day Atorvastatin Calcium 40 MG Tablet 1 tablet Orally Once a day Calcium + D Levoxyl 100 MCG Tablet 1 tablet in the morning on an empty stomach Orally Once a day Extra Depth Orthopedic Shoes (1 Pair) with Customized Heat Molded Multidensity Innersoles (3 Pair) as directed Dx: NIDDM/PVD (E11.59), Hammertoe Foot Deformity (M20.41,M20.42), Preulcerative Skin Lesion(s) (L85.1) Taking glipiZIDE Taking amLODIPine Besylate 5 MG Tablet 1 tablet Orally Once a day Taking Atorvastatin Calcium 40 MG Tablet 1 tablet Orally Once a day Taking Calcium + D Taking Levoxyl 100 MCG Tablet 1 tablet in the morning on an empty stomach Orally Once a day Taking Extra Depth Orthopedic Shoes (1 Pair) with Customized Heat Molded Multidensity Innersoles (3 Pair) as directed Dx: NIDDM/PVD (E11.59), Hammertoe Foot Deformity (M20.41,M20.42), Preulcerative Skin Lesion(s) (L85.1) Not-Taking/PRNBenicar 20 MG Tablet 1 tablet Orally Once a day Extra Depth Orthopedic Shoes (1 Pair) with Customized Heat Molded Multidensity Innersoles (3 Pair) as directed Dx: NIDDM/PVD (E11.59), Hammertoe Foot Deformity (M20.41,M20.42), Preulcerative Skin Lesion(s) (L85.1) metFORMIN HCl 500 MG Tablet 1 tablet with a meal Orally Once a day Medication List reviewed and reconciled with the patientNot-Taking/PRN Benicar 20 MG Tablet 1 tablet Orally Once a day Not-Taking/PRN Extra Depth Orthopedic Shoes (1 Pair) with Customized Heat Molded Multidensity Innersoles (3 Pair) as directed Dx: NIDDM/PVD (E11.59), Hammertoe Foot Deformity (M20.41,M20.42), Preulcerative Skin Lesion(s) (L85.1) Not-Taking/PRN metFORMIN HCl 500 MG Tablet 1 tablet with a meal Orally Once a day Medication List reviewed and reconciled with the patient * Allergies:?N.K.D.A.yes[Aller gies Verified] Objective: * Vitals:?Ht: 5 ft 5 in, Wt: 1 70, BMI: 28.29, Shoe size: 9.5-10, BP: 134/82 mm Hg, BS: 172, Wt-k.11 kg. * Examination: ???Ophthalmology Referral: ?DIABETES EYE EXAM?Procedure Performed:?Yes ?Date of Exam Performed?11/28/2023 ?Findings of Diabetic Eye Exam:?no retinopathy?Vascular: ?DP PULSES (B):? 2/4, B/L.?PT PULSES (B):? 0/4, B/L.?CAPILLARY FILL TIME:? delayed, all digits, B/L.?TROPHIC CONDITION-TEXTURE/ELASTICITY/TURGOR/HAIR GROWTH (B):? decreased, B/L.?TEMPERTURE GRADIENT (C):? decreased, cool to cool, proximal to distal, B/L.?PIGMENTATION:? pale, B/L.?EDEMA (C):? absent, B/L.?Nails: ?NAILS are:? 1-5 B/L, nails are elongated, overgrown, dystrophic.?Dermatologic: ?SKIN FINDINGS:?Skin exam reveals Keratotic lesion(s) located at, TA, T5.?VERRUCA:?STILL?reveals a Single , multi-loculated , mosaically patterned, round, raised, flat-topped, petechial bleeding papulae(s), with cauliflower appearance and interrruption of skin lines, pain to lateral compression, and size estimated at 5mm diameter, plantar Forefoot, LEFT,.?General Examination: ?FOOT EXAM:?Lower Extremity Neurological Exam performed:?Yes ?Visual exam of foot performed:?Yes ?Date?11/16/2024 ?Footwear Evaluation?Footwear Evaluation performed:?Yes?Orthopedic: ?FOOTWEAR:?fair condition.? Assessment: * Assessment: 1.?Type 2 diabetes mellitus with diabetic peripheral angiopathy without gangrene - E11.51 (Primary)???2.?Atherosclerosis of [place] artery of both lower extremities, with unspecified presence of clinical manifestation - I70.203???3.?Plantar wart - B07.0???4.?Pain in left foot - M79.672??? Plan: * Treatment: * Procedures:?Keratoma Treatment:?Parring or Cutting of Benign Hyperkeratotic Lesion(s)?(-56) 2-4 Lesions - Due to the at risk nature of the patients medical condition as documented in the exam findings, performance of this keratoderma treatment is medically necessary as its management by an unskilled/untrained nonprofessional would put this patients foot and overall health at risk. Therefore, the benign hyperkeratotic lesions, ( 2) in total, locations as stated and described in the exam ( TA, T5 ), were pared, and/or cut utilizing a sterile 15 blade, tissue nippers, and/or power dremel instrumentation by the physician of record - 28064.?Wart Treatment:?Procedure?Verrucae(s) were debrided to pin-point bleeding margins with sterile surgical blade, silver nitrate chemocautery applied, recomm. immune-boosting meds such as zinc, recomm. follow up with topical chemosurgical agents, Pt defers any other forms of tx (33045).?Nail Reduction:?Nail Reduction?Trimming of dystrophic nails performed to reduce/remove overall nail length and girth, by manual and electrical means with use of a nail nipper and/or dremel, to more viable healthy nail plate or bed tissue 6-10 (G0127- Q8).? * Procedure Codes:?54234 Wart Destruction, 1-14, Modifiers: XS G0127 TRIMMING DYSTROPHIC NAILS ANY #, Modifiers: XS , [id number] TRIM SKIN LESIONS, 2 TO 4, Modifiers: XS , Q8 * Preventive Medicine:? ??Screening/Special Tests:?Fall Risk?Assessment:?Performed ?Screening:?No falls in the past year ?FALLS: Screening for Future Fall Risk?Have you had two or more falls in the past year??No ?Have you had any falls with injury in the past year??No * Follow Up:?2 Months * Images: * Sign off status: Completed true * Provider:?Cindy Pruett, DPM Date:? Generated for Fannie marr/Masha/eTransmitting on:?02/20/2025 11:39 AM EDT History and Physical Notes * HPI (History of Present Illness) Category Sub-Category Detail Notes Category Not es At Risk footcare Pt States Last PCP Visit: Date: Examination Category Sub-Category Detail Notes Category Not es Dermatologic SKIN FINDINGS: Skin exam reveal s Keratotic lesion(s) located at, TA, T5 VERRUCA: STILL reveals a Sing le , multi-loculated , mosaically patterned, round, raised, flat-topped, petechial bleeding papulae(s), with cauliflower appearance and interrruption of skin lines, pain to lateral compression, and size estimated at 5mm diameter, plantar Forefoot, LEFT, Orthopedic FOOTWEAR: fair condition General Examination FOOT EXAM: Lower Extrem ity Neurological Exam performed:: Yes Visual exam of foot performed:: Yes Date: 11/16/2024 Footwear Evaluation Footwear Evaluation performe d:: Yes Ophthalmology Referral DIABETES EYE EXAM Procedure Perform ed:: Yes ?Date of Exam Performed: 11/28/2023 Findings of Diabetic Eye Exam:: no retin opathy Vascular DP PULSES (B): 2/4, B/L PT PULSES (B): 0/4, B/L CAPILLARY FILL TIME: delayed, all digits , B/L TEMPERTURE GRADIENT (C): decreased, cool to cool, proximal to distal, B/L TROPHIC CONDITION-TEXTURE/ELASTICITY/TURGOR/HAIR GROWTH (B): decreased, B/L EDEMA (C): absent, B/L PIGMENTATION: pale, B/L Nails NAILS are: 1-5 B/L, nails are elongated , overgrown, dystrophic
--- OUTSIDE RECORDS SUMMARY | 2025-02-20 11:39 | XMS_ITS ---
[facility] Address [address] [place] [address] Care Team Providers Care Safety Deposit Boxes Custodian Name Role Phone Claude NANCE, Asma Primary Care Provider Cindy Glass Unavailable [phone] Allergies No Known Allergies REASON FOR VISIT At Risk Footcare, Painful Nail(s) aggravated by shoes and causing difficulty standing/walking., Wart(s) Medications Medication SIG (Take, Route, Frequency, Duration) Notes Start Date End Date Status Calcium + D Active amLODIPine Besylate 5 MG 1 tablet Orally Once a day for 30 day(s) Active glipiZIDE Active Benicar 20 MG 1 tablet Orally Once a day for 30 day(s) Not-Taking Atorvastatin Calcium 40 MG 1 tablet Orally Once a day for 30 day(s) Active Extra Depth Orthopedic Shoes (1 Pair) with Customized Heat Molded Multidensity Innersoles (3 Pair) as directed Dx: NIDDM/PVD (E11.59), Hammertoe Foot Deformity (M20.41,M20.42), Preulcerative Skin Lesion(s) (L85.1) 01/07/2021 Not-Taking Extra Depth Orthopedic Shoes (1 Pair) with Customized Heat Molded Multidensity Innersoles (3 Pair) as directed Dx: NIDDM/PVD (E11.59), Hammertoe Foot Deformity (M20.41,M20.42), Preulcerative Skin Lesion(s) (L85.1) 05/07/2022 Active metFORMIN HCl 500 MG 1 tablet with a jus l Orally Once a day for 30 day(s) Not-Taking Levoxyl 100 MCG 1 tablet in the morn ing on an empty stomach Orally Once a day for 30 day(s) Active Social History Tobacco Use: Social History Observation Description Date Details (start date - stop date) Former Smoker NA - NA Tobacco Use/Smoking Question Answer Notes Are you a: former smoker Additional Findings: Tobacco Non-User Current no n-smoker Alcohol Screen Question Answer Notes Did you have a drink containing alcohol in the p ast year? No Points 0 Interpretation Negative Tobacco use other than smoking: Question Answer Notes Are you an other tobacco user? No Vital Signs Height 5 ft 5 in in 09/07/2024 Weight 170 lbs 09/07/2024 BMI 28.29 kg/m2 09/07/2024 Encounters Encounter Location Date Provider Diagnosis [facility] [address] [place] [address] 09/07/2024 Cindy Pruett Type 2 diabetes mellitus with diabetic peripheral angiopathy without gangrene E11.51 ; Atherosclerosis of [place] artery of both lower extremities, with unspecified presence of clinical manifestation I70.203 ; Plantar wart B07.0 and Pain in left foot M79.672 Assessments Encounter Date Diagnosis (ICD Code) Assessment Notes Treatment Notes Treatment Clinical Notes Section Notes 09/07/2024 Type 2 diabetes mellitus with diabetic peripheral angiopathy without gangrene (ICD-10 - E11.51) 09/07/2024 Atherosclerosis of [place] mountain artery of both lower extremities, with unspecified presence of clinical manifestation (ICD-10 - I70.203) 09/07/2024 Plantar wart (ICD-10 - B07.0) 09/07/2024 Pain in left foot (ICD-10 - M79.672) Plan Of Treatment Next Appt Details Follow Up: 2 Months, Reason: Provider Name:Cindy sainz, 05/01/2025 10:00:00 AM, [address] [place], [address], Procedure Notes * Category Sub-Category Detail Notes Wart Treatment Procedure Verrucae(s) were debrided to pin-point bleeding margins with sterile surgical blade, silver nitrate chemocautery applied, recomm. immune-boosting meds such as zinc, recomm. follow up with topical chemosurgical agents, Pt defers any other forms of tx (82242) Keratoma Treatment Parring or Cutting o f Benign Hyperkeratotic Lesion(s) 75293 (2-4 Lesions) - The Benign hyperkeratotic lesions, as described above were pared, and/or cut utilizing a sterile #15 blade, tissue nippers, and/or dremel, Q8 Nail Reduction Nail Reduction Trimming of dyst rophic nails performed to reduce/remove overall nail length and girth, by manual and electrical means with use of a nail nipper and/or dremel, to more viable healthy nail plate or bed tissue 6-10 (K9672-N8) Progress Notes * Blanca LERMA ADOB: 6 (89 yo F)Acc No.[id number]:09/07/2024 Progress Note Patient:?Blanca Lerma Provider:?Cindy Pruett DPM :1935???Age:89 Y???Sex:Female D ate:09/07/2024 Address:[address] [place] [address] Jordon cheng, [facility] Pcp:Yves Arce MD Subjective: * Chief Complaints: * ???At Risk FootcarePainful N ail(s) aggravated by shoes and causing difficulty standing/walking.Wart(s) * HPI: ???At Risk footcare:?Pt States Last PCP Visit:?Date?05/16/2024 * ROS:?General/Constitutional:?Nausea?denies.?Vomiting?denies.?Hunger Thirst?denies.?Loss appetite?denies.?Chills?denies.?Fatigue?denies.?Fever?denies.?Night Sweats?denies.?Unexplained weight loss?denies.?Unexplained weight gain?denies.?HEENTM:?Dentures?denies.?Dizziness?denies.?Glasses/contacts?denies.?Retinopathy?de nies.?Blurred/double vision?denies.?TMJ?denies.?Discharge/drainage?denies.?Implants?denies.?Sore throat?denies.?Dental implants?denies.?Hard of hearing ?denies.?Difficulty chewing/swallowing/speaking?denies.?Nose bleeds?denies.?Sore mouth?denies.?Respiratory:?On Oxygen?denies.?Pneumonia/pleurisy?denies.?Bronchitis?denies.?Emphysema?denies.?C oughing?denies.?Cough blood?denies.?Shortness of breath?denies.?Wheezing?denies.?Cardiovascular:?Pacemaker?denies.?MVP?denies.?WPW?denies.?CHF?denies.?Heart attack?denies.?Septal defect?denies.?Rapid beat?denies.?Chest pain ?denies.?Atrial Fib.?denies.?Murmur/Palpitations?denies.?Gastrointestinal:?Hemorrhoids?denies.?Stomach/Abdominal pain?denies.?Dark blood stool?denies.?Irritable bowel ?denies.?Constipation?denies.?Diarrhea?denies.?Hematology:?Swelling?denies.?Clots?denies.?Varicose Veins?denies.?Bruising?denies.?Bleeding problem?denies.?Genitourinary:?Blood urine?denies.?Frequent/Painfu/urination/bladder control?denies.?Kidney stones?denies.?Infection (UTI)?denies.?Nephropathy?denies.?sex trans dis (STD)?denies.?Prostate?denies.?Musculoskeletal:?Hammertoes?denies.?Bunions?denies.?Back Pain?denies.?Muscle Cramps/ Resting?denies.?Muscle cramps / walking?denies.?Generalized aches and pains?denies.?Weakness?denies.?Integ.:?Alba?denies.?Scars?denies.?Corns/calluses?denies.?Ingrown nails?denies.?Painful nails?denies.?Open Sores?denies.?Rashes?denies.?Neurologic:?Difficulty sleeping?denies.?Brain disorder?denies.?Numbness?denies.?Balance trouble?denies.?Confusion?denies.?Fainting/blackouts?denies.?Tingling?denies.?Tr emors?denies.? * Medical History:? * Surgical History:?skin cance r 1918,191,06/2020cardiac pacemeker * Hospitalization/Major Diagno stic Procedure:?Denies Past Hospitalization * Family History:?Mother: dece ased, diagnosed with Family history of arthritis, Diabetic - NIDDM.?Father: , diagnosed with Family history of arthritis, Diabetic - NIDDM.? * Social History:?Tobacco Use:?Tobacco Use/Smoking?Are you a:?former smoker ?Additional Findings: Tobacco Non-User?Current non-smoker ?Tobacco use other than smoking?Are you an other tobacco user??No ???Drugs/Alcohol:?Drugs?Have you used drugs other than those for medical reasons in the past 12 months??No ?Alcohol Screen?Did you have a drink containing alcohol in the past year??No ?Points?0 ?Interpretation?Negative ???Miscellaneous:?no Caffeine, frequency:, 1-2 cups diet soda per day. ?Children: yes, 5. ?Exercise: yes, walking. ?Marital status: . ?Occupation: Retired- [employer]. * Medications:?TakingglipiZIDE amLODIPine Besylate 5 MG Tablet 1 tablet Orally Once a dayAtorvastatin Calcium 40 MG Tablet 1 tablet Orally Once a dayCalcium + D Levoxyl 100 MCG Tablet 1 tablet in the morning on an empty stomach Orally Once a dayExtra Depth Orthopedic Shoes (1 Pair) with Customized Heat Molded Multidensity Innersoles (3 Pair) as directed Dx: NIDDM/PVD (E11.59), Hammertoe Foot Deformity (M20.41,M20.42), Preulcerative Skin Lesion(s) (L85.1)Taking glipiZIDE Taking amLODIPine Besylate 5 MG Tablet 1 tablet Orally Once a dayTaking Atorvastatin Calcium 40 MG Tablet 1 tablet Orally Once a dayTaking Calcium + D Taking Levoxyl 100 MCG Tablet 1 tablet in the morning on an empty stomach Orally Once a dayTaking Extra Depth Orthopedic Shoes (1 Pair) with Customized Heat Molded Multidensity Innersoles (3 Pair) as directed Dx: NIDDM/PVD (E11.59), Hammertoe Foot Deformity (M20.41,M20.42), Preulcerative Skin Lesion(s) (L85.1)Not-Taking/PRNBenicar 20 MG Tablet 1 tablet Orally Once a dayExtra Depth Orthopedic Shoes (1 Pair) with Customized Heat Molded Multidensity Innersoles (3 Pair) as directed Dx: NIDDM/PVD (E11.59), Hammertoe Foot Deformity (M20.41,M20.42), Preulcerative Skin Lesion(s) (L85.1)metFORMIN HCl 500 MG Tablet 1 tablet with a meal Orally Once a dayNot-Taking/PRN Benicar 20 MG Tablet 1 tablet Orally Once a dayNot-Taking/PRN Extra Depth Orthopedic Shoes (1 Pair) with Customized Heat Molded Multidensity Innersoles (3 Pair) as directed Dx: NIDDM/PVD (E11.59), Hammertoe Foot Deformity (M20.41,M20.42), Preulcerative Skin Lesion(s) (L85.1)Not-Taking/PRN metFORMIN HCl 500 MG Tablet 1 tablet with a meal Orally Once a dayDiscontinuedAlign GlipiZIDE- Metformin HCl Medication List reviewed and reconciled with the patientDiscontinued Align Discontinued GlipiZIDE-Metformin HCl Medication List reviewed and reconciled with the patient * Allergies:?N.K.D.A.yes[Aller gies Verified] Objective: * Vitals:?Ht: 5 ft 5 in, Wt: 1 70, BMI: 28.29, Shoe size: 9.5-10, BS: 160, Wt-k.11 kg. * ???Past Orders: ???Lab:HEMOGLOBIN A1C (GLYCO HEMOGLOBIN) (Order Date - 04/28/2024) (Collection Date - 04/28/2024) ? Value Reference Range ?TOTAL HEMOGLOBIN (HGBA1C) 6.9 * Examination: ???Ophthalmology Referral: ?DIABETES EYE EXAM?Diabetic Retinopathy Screening:?Yes ?Findings of Diabetic Eye Exam:?no retinopathy?Vascular: ?DP PULSES(B):? 2/4, B/L.?PT PULSES(B):? 0/4, B/L.?CAPILLARY FILL TIME:? delayed, all digits, B/L.?TROPHIC CONDITION-TEXTURE/ELASTICITY/TURGOR/HAIR GROWTH(B):? decreased, B/L.?TEMPERTURE GRADIENT(C):? decreased, cool to cool, proximal to distal, B/L.?PIGMENTATION:? pale, B/L.?EDEMA(C):? absent, B/L.?Nails: ?NAILS are:? 1-5 B/L, nails are elongated, overgrown, dystrophic.?Dermatologic: ?VERRUCA:?STILL?reveals a Single , multi-loculated , mosaically patterned, round, raised, flat-topped, petechial bleeding papulae(s), with cauliflower appearance and interrruption of skin lines, pain to lateral compression, and size estimated at 5mm diameter, plantar Forefoot, LEFT,.? Assessment: * Assessment: 1.?Type 2 diabetes mellitus with diabetic peripheral angiopathy without gangrene - E11.51?2.?Atherosclerosis of [place] artery of both lower extremities, with unspecified presence of clinical manifestation - I70.203?3.?Plantar wart - B07.0?4.?Pain in left foot - M79.672? Plan: * Treatment: * Procedures:?Keratoma Treatment:?Parring or Cutting of Benign Hyperkeratotic Lesion(s)?73079 (2-4 Lesions) - The Benign hyperkeratotic lesions, as described above were pared, and/or cut utilizing a sterile #15 blade, tissue nippers, and/or dremel, Q8.?Wart Treatment:?Procedure?Verrucae(s) were debrided to pin-point bleeding margins with sterile surgical blade, silver nitrate chemocautery applied, recomm. immune-boosting meds such as zinc, recomm. follow up with topical chemosurgical agents, Pt defers any other forms of tx (24790).?Nail Reduction:?Nail Reduction?Trimming of dystrophic nails performed to reduce/remove overall nail length and girth, by manual and electrical means with use of a nail nipper and/or dremel, to more viable healthy nail plate or bed tissue 6-10 (G0127- Q8).? * Procedure Codes:?56639 Wart Destruction, 1-14, Modifiers: XS G0127 TRIMMING DYSTROPHIC NAILS ANY #, Modifiers: XS , [id number] TRIM SKIN LESIONS, 2 TO 4, Modifiers: XS , Q8 * Follow Up:?2 Months * Images: * Sign off status: Completed true * Provider:?Cindy Pruett, ABEBE Date:?09/2024 Generated for Fannie marr/Masha/Omar on:?02/20/2025 11:39 AM EDT History and Physical Notes * HPI (History of Present Illness) Category Sub-Category Detail Notes Category Not es At Risk footcare Pt States Last PCP Visit: Date: 4 Examination Category Sub-Category Detail Notes Category Not es Dermatologic SKIN FINDINGS: VERRUCA: STILL reveals a Sing le , multi-loculated , mosaically patterned, round, raised, flat-topped, petechial bleeding papulae(s), with cauliflower appearance and interrruption of skin lines, pain to lateral compression, and size estimated at 5mm diameter, plantar Forefoot, LEFT, Ophthalmology Referral DIABETES EYE EXAM Diabetic Retinopa thy Screening:: Yes Findings of Diabetic Eye Exam:: no retin [...]
--- OUTSIDE RECORDS SUMMARY | 2025-02-20 11:40 | XMS_ITS | Patient Health Record ---
Author Organization [facility] Address [address] [place] [address] Care Team Providers Care Groover Operator Name Role Phone Claude NANCE, Asma Primary Care Provider Austyn Kenney Jr Unavailable Allergies No Known Allergies Reason For Referral No Information Medications Medication SIG (Take, Route, Frequency, Duration) Notes Start Date End Date Status Levothroid 100 MCG 1 tablet in the morning on an empty stomach Orally Once a day Active Calcium + D Active GlipiZIDE-Metformin HCl i combined tablet bid. Active Olmesartan Medoxomil 20 MG as directed Orally once a day Active Atorvastatin Calcium 40 MG 1 tablet Orally TWICE A DAY Active Align Active amLODIPine Besylate 5 MG 1 tablet Orally Once a day Active Problems Problem Type SNOMED Code ICD Code Onset Dates Problem Status W/U Status Risk Notes Problem [id number] Diarrhea, unspecified type (R19.7) Active confirmed Plan Of Treatment Pending Test Test Name Order Date STOOL WBC 05/05/2023 CRYPTOSPORDIUM AG, DFA 05/25/2023 GIARDIA AG, STOOL EIA 05/25/2023 OVA & PARASITES (O&P) 05/25/2023 PANCREATIC ELASTASE 05/05/2023 FECAL FAT QUAL 05/05/2023 OCCULT BLOOD STOOL 05/05/2023 C DIFFICILE RFLX PCR 05/25/2023 CALPROTECTIN, STOOL 05/05/2023 Future Test Test Name Order Date COLONOSCOPY 06/07/2012 Insurance Providers Payer Name Payer Address Payer Phone Subscriber Number Group Number Insured Name Patient Relationship to Insured Coverage Start Date Coverage End Date MEDICARE OF [place] [address] [facility] [place] [id number] SELENA SEALS Self - patient is the [facility] [address] [place] [address] [id number] SELENA SEALS Self - patient is the insured Medical (General) History Medical History History ICD Code Diabetes mellitus type 2 with nephropath y Thyroid disease Hypertension Osteoarthritis Colonoscopy 08/09, tubular adenoma follow up optional due to age Hyperlipidemia Surgical History Surgery Date(Month/Year) Pacemaker--[employer] 2007 Cataract replacements bilaterally skin cancer removal orthodox
--- OUTSIDE RECORDS SUMMARY | 2025-02-20 11:40 | XMS_ITS ---
Author Organization [facility] Address [address] [place] [address] Care Team Providers Care Rail Director Name Role Phone Claude NANCE, Yves Primary Care Provider Austyn Kenney Jr REASON FOR VISIT not feeling right Encounters Encounter Location Date Provider Diagnosis [facility] [address] [place] [phone] 09/12/2023 Austyn Grove Jr Plan Of Treatment No Information Progress Notes * SELENA SEALS ADOB: [birth year] (89 yo F)Acc No.[id number]:09/12/2023 Progress Notes Patient:?SELENA SEALS Provider:?Austyn Grove MD :1935???Age:88 Y???Sex:Female D ate:09/12/2023 Address:[address] [place], [place] [id number] Pcp:Yves Arce MD Subjective: * Chief Complaints: * ???1. Not feeling right. * Medical History:? Objective: * Vitals:? Assessment: Plan: * Treatment: * * The named appointment provid er may or may not be the originator of this progress note, and it is not deemed complete until electronically signed by the appointment provider. Sign off status: Pending * Provider:?Austyn Grove MD Date:?1 Generated for Cindyi justa/Masha/eTransmitting on:?02/20/2025 11:39 AM EDT
== END 2025-02-20 11:41 | disposition home or self-care (01) ==
LOC: HO.HMCC 10:08
PROVIDERS: PCP Internal Medicine; Visit Provider Internal Medicine
DX: E13.9 Other specified diabetes mellitus without complications (principal); I10 Essential (primary) hypertension; E03.8 Other specified hypothyroidism; E78.9 Disorder of lipoprotein metabolism, unspecified; R80.9 Proteinuria, unspecified; N28.9 Disorder of kidney and ureter, unspecified; Z95.0 Presence of cardiac pacemaker

== ENCOUNTER → 2025-02-20 10:08 | Outpatient (BNVA) | payer MEDICARE, OTHER, SELFPAY | PROVIDERS: PCP Internal Medicine; Visit Provider Internal Medicine | DX: E13.9 Other specified diabetes mellitus without complications (principal); I10 Essential (primary) hypertension; E03.8 Other specified hypothyroidism; E78.9 Disorder of lipoprotein metabolism, unspecified; R80.9 Proteinuria, unspecified; N28.9 Disorder of kidney and ureter, unspecified; Z95.0 Presence of cardiac pacemaker | CPT/HCPCS: 99212 ==

== ENCOUNTER 2025-05-10 09:12 | Outpatient (REF) | payer MEDICARE, OTHER, SELFPAY ==
[2025-05-10 12:53] LABS: MANUAL DIFF FLAG NO
[2025-05-10 13:16] LABS: Basophils Absolute Auto 0.1 X10*3/uL (0.0-0.2); Basophils Percent Auto 0.7 % (0-2); Hematocrit 35.5 % (37.0-47.0); Hemoglobin 11.6 g/dl (12.0-16.0); Imm Gran Abs Auto 0.04 X10*3/uL (0.00-0.03); Imm Gran Pct Auto 0.4 % (0.0-0.4); Lymphocytes Absolute Auto 2.8 X10*3/uL (1.2-4.9); Lymphocytes Percent Auto 25.3 % (20-40); Mean Corpuscular HGB Conc 32.7 g/dl (31.0-35.0); Mean Corpuscular Hemoglobin 30.4 pg (27.0-33.0); Mean Corpuscular Volume 93.2 fL (80.0-98.0); Mean Platelet Volume 10.2 fL (9.4-12.3); Monocytes Absolute Auto 0.6 X10*3/uL (0.1-1.2); Monocytes Percent Auto 5.2 % (2-11); Neutrophils Absolute Auto 7.5 x10*3/uL (2.0-8.3); Neutrophils Percent Auto 68.4 % (45-73); Platelet Count 238 X10*3/uL (160-400); Red Blood Count 3.81 X10*6/uL (4.20-5.50); Red Cell Distribution Width 12.9 % (11.0-16.0)
[2025-05-10 13:25] LABS: Estimated Average Glucose 203 mg/dL; Hemoglobin A1c % 8.7 % (<6.0)
[2025-05-10 13:49] LABS: Alanine Aminotransferase 14 U/L (0-31); Albumin Level 4.5 g/dL (3.5-5.0); Alkaline Phosphatase 136 U/L (39-117); Anion Gap 13 (12-20); Aspartate Amino Transferase 20 U/L (5-31); Bilirubin Total 0.8 mg/dL (0.0-1.0); Blood Urea Nitrogen 29 mg/dL (9-16); Calcium 9.8 mg/dL (8.4-10.2); Carbon Dioxide 25 mmol/L (22-29); Chloride 105 mmol/L (96-108); Estimated Glomerular Filt Rate 31; Glucose Random 251 mg/dL (60-115); Potassium 4.3 mmol/L (3.3-5.1); Sodium 139 mmol/L (135-145); TSH reflex Free T4 1.32 uIU/mL (0.32-4.0); Total Protein 7.2 g/dL (6.5-8.0)
== END 2025-05-10 09:13 | disposition home or self-care (01) ==
LOC: HO.HMGCLDS 09:12
PROVIDERS: PCP Internal Medicine; Visit Provider Internal Medicine
DX: Z00.01 Encounter for general adult medical examination with abnormal findings (principal); E13.9 Other specified diabetes mellitus without complications; I10 Essential (primary) hypertension; E03.8 Other specified hypothyroidism; E78.5 Hyperlipidemia, unspecified; M17.0 Bilateral primary osteoarthritis of knee; R80.9 Proteinuria, unspecified; Z79.84 Long term (current) use of oral hypoglycemic drugs; Z79.899 Other long term (current) drug therapy
CPT/HCPCS: 36415; 80053; 83036; 84443; 85025; 96127; 99212; 99397

== ENCOUNTER 2025-05-10 09:12 | Outpatient (AMB) | payer MEDICARE, OTHER, SELFPAY ==
[2025-05-10 09:18] VITALS: BP 142/60; PULSE 82; TEMP 36.6; O2SAT 97; BMI 28.8
--- NOTE | 2025-05-10 09:18 | A.OFFPC_ITS ---
Vital Signs 05/10/25 09:18 Height 5 ft 5 in Weight 173 lb BMI 28.8 BP 142/60 H Blood Pressure Location Rt brachial Position Sitting Pulse 82 Pulse Source Pulse Oximeter Temp 97.9 F Temp Source Oral Pulse Oximetry (%) 97 Oxygen Delivery Method Room Air Intake Visit Reasons: Annual PE Allergies No Known Allergies Allergy (Mild, Verified 05/10/25 09:20) NA Medication List - Last Reconciled 05/10/25 by Yves Arce MD amlodipine 10 mg PO DAILY 90 days atorvastatin 40 mg PO DAILY 90 days blood sugar diagnostic As directed blood sugar diagnostic (Accu-Chek Suzi Plus test strips) Patient to check blood sugar once daily blood-glucose meter As directed glipizide ER 10 mg PO BID 90 days lancets As directed lancets (Accu-Chek Softclix Lancets) Patient to check blood sugar once daily levothyroxine (Levoxyl) 100 mcg PO DAILY 90 days olmesartan 40 mg PO DAILY Tobacco use date assessed: 05/10/25 Fall risk assessment: 1 Fall in past year Last assessed Fall Risk: 05/10/25 Dental Screening Dental Screen Date: 05/10/25 Did you have a dental visit in the last 12 months?: No Did you have a dental problem in the last 6 months where you did not have access to dental care?: No Was dental information given to patient?: Patient declined HPI Annual PE HPI Details PE - The patient is an 89-year-old female p resenting with concerns related to blood glucose management and hypertension. - Previous HbA1c was noted to be 8.8%. T he patient recognizes this as elevated and the goal is less than 7%. The patient does not report hypoglycemia but fasting blood sugar levels are noted to be high (around 180-190 mg/dL). - Hypertension has been previously diagn osed, and the patient is on multiple antihypertensive medications. Current blood pressure is stable. - Elevated creatinine level was 1.46 dur ing last evaluation, requiring recent repetition. . - The patient denies any significant audrey nge in subjective wellbeing and is currently living independently, actively managing her home environment. Medical History: - Type 2 Diabetes Mellitus - Hypertension - Hyperlipidemia - Hypothyroid Social History: - The patient lives independently in a s [place]-room house in [place]. - Family support is present, with a son living next door in a duplex arrangement. - Recreational activities include [employer]. Health Maintenance - Mammograms have been discontinued. - Vaccinations: Needs an updated pneumon ia vaccine (Prevnar). Shingles vaccination is complete with two doses. - Other injections are up to date. [place] of Care - Son and family reside next door and pr ovide support. 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 Diagnostic results - Labs: HbA1c was 8.8% during previous e valuation; creatinine was noted at 1.46. Patient Instructions - Obtain blood test today as a non-fasti ng sample. - Follow up on updated pneumonia vaccine (Pneumonia 21) at a pharmacy or healthcare clinic. - Await a phone call regarding sugar lev el results for possible medication adjustments. - continue meds f/u 3 M Review of Systems - General: No fever no chills - Neurological: No headaches no dizzin ess - Ear nose throat: No sore throat no hearing difficulty no ear pain - Cardiovascular: No syncope, no chest pain, no palpitations - Gastrointestinal: No nausea vomiting or diarrhea - Endocrine: No polyuria polydipsia no heat intolerance - Genitourinary: No dysuria - Skin: No new complaints Physical Exam General: Cooperative, healthy appearing, comfortable, no acute distress Orientation: Patient oriented x3 Head: Normal to inspection Ears: Within normal limit visually Nose: Normal external nose present Face and sinus: Normal facial exam Eyes: Appearance normal, extraocular movement intact pupils reactive Neck: Normal visual inspection and supple Respiratory: Normal respiratory effort and able to speak in complete sentences. Clear to auscultation, no stridor Cardiovascular: S1 and S2 RRR Breast exam declined GI: Normal to inspection. 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 Son No problems noted. Son No problems noted. Son No problems noted. Son No problems noted. Social History Housing: House Alcohol intake: never Patient Tobacco Use Status: Former Tobacco user (30 years ago ) Tobacco use type: Cigarette Years Smoked: 20 years e-Cigarette/Vaping Use: Never Used service: No Current occupational status: retired Current occupation: Right Handed Cognitive needs: No Hearing needs: No Vision needs: Yes Questionnaire PHQ-9 Over the last 2 weeks, how often have you been bothered by any of the following problems? 37320 - PHQ-9 Billing: Yes Source: Developed by Drs. Abiel Christensen, Malu Ram, Jean-Pierre Higginbotham and colleagues, with an educational zuleyma from [employer]. Thrive Questionnaire Date Thrive assessed: 12/04/24 AUDIT C Alcohol Use Questionnaire (AUDIT-C) 1. How often do you have a drink containing alcohol?: Never 3. How often do you have six or more drinks on one occasion?: Never Total Score: 0 Score Reviewed/Action Taken: Yes PATRICIA-7 AMB Questionnaire PATRICIA-7 Date PATRICIA - 7 assessed: 12/04/24 Source: Developed by Drs. Abiel Christensen, Malu Ram, Jean-Pierre Higginbotham and colleagues, with an educational zuleyma from [employer]. Physical exam (Primary Care) Vital Signs: Last Vital Signs Temp 97.9 F 05/10/25 09:18 Pulse 82 05/10/25 09:18 BP 142/60 H 05/10/25 09:18 Pulse Ox 97 05/10/25 09:18 Oxygen Delivery Method Room Air 05/10/25 09:18 BMI result Body Mass Index 28.8 Tobacco/Smoking Status: Tobacco use Status Tobacco use date assessed 05/10/25 05/10/25 09:21 Patient Tobacco Use Status Former Tobacco user (30 05/10/25 09:21 years ago ) Tobacco use type Cigarette 05/10/25 09:21 e-Cigarette/Vaping Use Never Used 05/10/25 09:21 Thrive Assessment: Date of Thrive Assessment Date Thrive assessed 12/04/24 05/10/25 09:21 Coding Level of Care Code Est Pt Level 3 (74630) Est Pt Prev Care >65y(10527) Diagnoses Encounter for general adult medical examination with abnormal findings Z00.01 Diabetes 1.5, managed as type 2 E13.9 Hypertension, essential I10 Other specified hypothyroidism E03.8 Lipid disorder E78.9 Primary osteoarthritis of both knees M17.0 Osteoarthritis type: primary Microalbuminuria R80.9 Additional Codes PHQ-9 - 28362 - PHQ-9 Billing: Yes ([id number]) Assessment & Plan Assessment & Plan (1) Encounter for general adult medical examination with abnormal findings: Code(s): Z00.01 - Encounter for general adult medical examination with abnormal findings Category: Medical (2) Diabetes 1.5, managed as type 2: Code(s): E13.9 - Other specified diabetes mellitus without complications Category: Medical (3) Hypertension, essential: Code(s): I10 - Essential (primary) hypertension Category: Medical (4) Other specified hypothyroidism: Code(s): E03.8 - Other specified hypothyroidism Category: Medical (5) Lipid disorder: Code(s): E78.9 - Disorder of lipoprotein metabolism, unspecified Category: Medical (6) Osteoarthritis of knees, bilateral: Code(s): M17.0 - Bilateral primary osteoarthritis of knee Category: Medical Qualifiers: Osteoarthritis type: primary Qualified Code(s): M17.0 - Bilateral primary osteoarthritis of knee (7) Microalbuminuria: Code(s): R80.9 - Proteinuria, unspecified Category: Medical Plan PE - The patient is an 89-year-old female presenting with concerns related to blood glucose management and hypertension. - Previous HbA1c was noted to be 8.8%. The patient recognizes this as elevated and the goal is less than 7%. The patient does not report hypoglycemia but fasting blood sugar levels are noted to be high (around 180-190 mg/dL). - Hypertension has been previously diagnosed, and the patient is on multiple antihypertensive medications. Current blood pressure is stable. - Elevated creatinine level was 1.46 during last evaluation, requiring recent repetition. . - The patient denies any significant change in subjective wellbeing and is currently living independently, actively managing her home environment. Medical History: - Type 2 Diabetes Mellitus - Hypertension - Hyperlipidemia - Hypothyroid Social History: - The patient lives independently in a seven-room house in [place]. - Family support is present, with a son living next door in a duplex arrangement. - Recreational activities include knitting. Health Maintenance - Mammograms have been discontinued. - Vaccinations: Needs an updated pneumonia vaccine (Prevnar). Shingles vaccination is complete with two doses. - Other injections are up to date. [place] of Care - Son and family reside next door and provide support. Medications - Amlodipine 10 mg for hypertension - Atorvastatin 40 mg for dyslipidemia - Glipizide 10 mg twice a day for diabetes - Levothyroxine 100 mcg for thyroid hormone replacement - Olmesartan 40 mg for hypertension Employment - Retired; manages household independently. Diagnostic results - Labs: HbA1c was 8.8% during previous evaluation; creatinine was noted at 1.46. Patient Instructions - Obtain blood test today as a non-fasting sample. - Follow up on updated pneumonia vaccine (Pneumonia 21) at a pharmacy or healthcare clinic. - Await a phone call regarding sugar level results for possible medication adjustments. - continue meds f/u 3 M Orders: Orders Hemoglobin A1c Today E03.8 - Other specified hypothyroidism, E13.9 - Other specified diabetes mellitus without complications, E78.9 - Disorder of lipoprotein metabolism, unspecified, I10 - Essential (primary) hypertension, M17.0 - Bilateral primary osteoarthritis of knee, R80.9 - Proteinuria, unspecif ied Comprehensive Met. Panel Today E03.8 - Other specified hypothyroidism, E13.9 - Other specified diabetes mellitus without complications, E78.9 - Disorder of lipoprotein metabolism, unspecified, I10 - Essential (primary) hypertension, M17.0 - Bilateral primary osteoarthritis of knee, R80.9 - Proteinuria, unspecified TSH reflex Free T4 Today E03.8 - Other specified hypothyroidism, E13.9 - Other specified diabetes mellitus without complications, E78.9 - Disorder of lipoprotein metabolism, unspecified, I10 - Essential (primary) hypertension, M17.0 - Bilateral primary osteoarthritis of knee, R80.9 - Proteinuria, unspecified Complete Blood Count Auto Diff Today E03.8 - Other specified hypothyroidism, E13.9 - Other specified diabetes mellitus without complications, E78.9 - Disorder of lipoprotein metabolism, unspecified, I10 - Essential (primary) hypertension, M17.0 - Bilateral primary osteoarthritis of knee, R80.9 - Proteinuria, unspecified
--- OUTSIDE RECORDS SUMMARY | 2025-05-10 09:34 | XMS_ITS | Patient Health Record ---
[facility] Address [address] [place] [address] Care Team Providers Care Maid Housekeeper Name Role Phone Claude NANCE, [facility] Primary [facility] Provider Cindy Glass Unavailable [phone] Allergies No Known Allergies Results Component Value Reference Range Notes HEMOGLOBIN A1C (GLYCOHEMOGLO BIN) Reviewed date:01/30/2025 10:44:22 AM Interpretation: Performing Lab: Notes/Report: HEMOGLOBIN A1C % (HH) 6.9 Reason For Referral No Information Medications Medication SIG (Take, Route, Frequency, Duration) Notes Start Date End Date Status Benicar 20 MG 1 tablet Orally Once a day for 30 day(s) Not-Taking Extra Depth Orthopedic Shoes (1 Pair) with Customized Heat Molded Multidensity Innersoles (3 Pair) as directed Dx: NIDDM/PVD (E11.59), Hammertoe Foot Deformity (M20.41,M20.42), Preulcerative Skin Lesion(s) (L85.1) 05/07/2022 Active Extra Depth Orthopedic Shoes (1 Pair) with Customized Heat Molded Multidensity Innersoles (3 Pair) as directed Dx: NIDDM/PVD (E11.59), Hammertoe Foot Deformity (M20.41,M20.42), Preulcerative Skin Lesion(s) (L85.1) 01/07/2021 Not-Taking Atorvastatin Calcium 40 MG 1 tablet Orally Once a day for 30 day(s) Active amLODIPine Besylate 5 MG 1 tablet Orally Once a day for 30 day(s) Not-Taking Levoxyl 100 MCG 1 tablet in the morn ing on an empty stomach Orally Once a day for 30 day(s) Active Calcium + D Active metFORMIN HCl 500 MG 1 tablet with a jus l Orally Once a day for 30 day(s) Not-Taking glipiZIDE Active Immunizations Vaccine Route Administration Date Status Comme nts COVID-19 Moderna Vaccine Unknown 01/30/2021 Administered COVID-19 Moderna Vaccine Unknown 09/28/2021 Administered First Dose: 02/27/21 Second Dose: 03/20/21 Influenza Unknown 07/29/2020 Administered Influenza Unknown 07/29/2021 Administered Influenza Unknown 07/29/2022 Administered Influenza Unknown 08/12/2022 Administered Influenza Unknown 07/29/2023 Administered Social History Tobacco Use: Social History Observation Description Date Details (start date - stop date) Never Smoker NA - NA Alcohol Screen Question Answer Notes Did you have a drink containing alcohol in the p ast year? No Points 0 Interpretation Negative Tobacco use other than smoking: Question Answer Notes Are you an other tobacco user? No Tobacco Control (Standard) Question Answer Notes Tobacco use: Nonsmoker Problems Problem Type SNOMED Code ICD Code Onset Dates Problem Status W/U Status Risk Notes Problem Acquired hammer toe of right foot ([id number]) Other hammer toe(s) (acquired), right foot (M20.41) Active confirmed Problem Acquired hammer toe of left foot (0618394593801323) Other hammer toe(s) (acquired), left foot (M20.42) Active confirmed Problem Plantar wart (24828504) Plantar wart (B07.0) Active confirmed Problem Type 2 diabetes mellitus with peripheral angiopathy (452718916) Type 2 diabetes mellitus with diabetic peripheral angiopathy without gangrene (E11.51) Active confirmed Problem Bilateral atherosclerosis of arteries of lower limbs (disorder) (67748479039103504 ) Atherosclerosis of [place] artery of both lower extremities, with unspecified presence of clinical manifestation (I70.203) Active confirmed Vital Signs Blood pressure diastolic 60 mm Hg 05/01/2025 Height 5 ft 5 in in 05/01/2025 Blood pressure systolic 120 mm Hg 05/01/2025 Weight 175 lbs 05/01/2025 BMI 29.12 kg/m2 05/01/2025 Encounters Encounter Location Date Provider Diagnosis [address] [address] 06/27/2024 Cindy Pruett Type 2 diabetes mellitus with diabetic peripheral angiopathy without gangrene E11.51 ; Atherosclerosis of [place] artery of both lower extremities, with unspecified presence of clinical manifestation I70.203 ; Plantar wart B07.0 and Pain in left foot M79.[address] [address] 09/07/2024 Cindy Pericemeli Type 2 diabetes mellitus with diabetic peripheral angiopathy without gangrene E11.51 ; Atherosclerosis of [place] artery of both lower extremities, with unspecified presence of clinical manifestation I70.203 ; Plantar wart B07.0 and Pain in left foot M79.[address] [address] 11/16/2024 Cindy Alatorrea Type 2 diabetes mellitus with diabetic peripheral angiopathy without gangrene E11.51 ; Atherosclerosis of [place] artery of both lower extremities, with unspecified presence of clinical manifestation I70.203 ; Plantar wart B07.0 and Pain in left foot M79.[address] [address] 01/30/2025 Cindy Pruett Type 2 diabetes mellitus with diabetic peripheral angiopathy without gangrene E11.51 ; Atherosclerosis of [place] artery of both lower extremities, with unspecified presence of clinical manifestation I70.203 ; Plantar wart B07.0 and Pain in left foot M79.[address] [address] 05/01/2025 Cindy Alatorrea Type 2 diabetes mellitus with diabetic peripheral angiopathy without gangrene E11.51 ; Atherosclerosis of [place] artery of both lower extremities, with unspecified presence of clinical manifestation I70.203 ; Plantar wart B07.0 and Pain in left foot M79.672 Assessments Encounter Date Diagnosis (ICD Code) Assessment Notes Treatment Notes Treatment Clinical Notes Section Notes 06/27/2024 Type 2 diabetes mellitus with diabetic peripheral angiopathy without gangrene (ICD-10 - E11.51) 06/27/2024 Atherosclerosis of [place] artery of both lower extremities, with unspecified presence of clinical manifestation (ICD-10 - I70.203) 09/07/2024 Type 2 diabetes mellitus with diabetic peripheral angiopathy without gangrene (ICD-10 - E11.51) 11/16/2024 Type 2 diabetes mellitus with diabetic peripheral angiopathy without gangrene (ICD-10 - E11.51) 11/16/2024 Atherosclerosis of [place] artery of both lower extremities, with unspecified presence of clinical manifestation (ICD-10 - I70.203) 01/30/2025 Type 2 diabetes mellitus with diabetic peripheral angiopathy without gangrene (ICD-10 - E11.51) 05/01/2025 Type 2 diabetes mellitus with diabetic peripheral angiopathy without gangrene (ICD-10 - E11.51) 05/01/2025 Atherosclerosis of [place] artery of both lower extremities, with unspecified presence of clinical manifestation (ICD-10 - I70.203) 01/30/2025 Atherosclerosis of [place] artery of both lower extremities, with unspecified presence of clinical manifestation (ICD-10 - I70.203) 11/16/2024 Plantar wart (ICD-10 - B07.0) 09/07/2024 Atherosclerosis of [place] artery of both lower extremities, with unspecified presence of clinical manifestation (ICD-10 - I70.203) 06/27/2024 Plantar wart (ICD-10 - B07.0) 06/27/2024 Pain in left foot (ICD-10 - M79.672) 09/07/2024 Plantar wart (ICD-10 - B07.0) 11/16/2024 Pain in left foot (ICD-10 - M79.672) 01/30/2025 Plantar wart (ICD-10 - B07.0) 05/01/2025 Plantar wart (ICD-10 - B07.0) 05/01/2025 Pain in left foot (ICD-10 - M79.672) 01/30/2025 Pain in left foot (ICD-10 - M79.672) 09/07/2024 Pain in left foot (ICD-10 - M79.672) Plan Of Treatment Next Appt Details Provider Name:Cindy sainz, 07/31/2025 01:00:00 PM, [address] [place] [address], [phone], Insurance Providers Payer Name Payer Address Payer Phone Subscriber Number Group Number Insured Name Patient Relationship to Insured Coverage Start Date Coverage End Date Medicare [employer] [address] [place] [address] [phone] [id number] LermaBlanca sainz Self - patient is the insured [employer] ([facility]) [address] [place] [address] [id number] Blanca Lerma Self - patient is the insured Medical (General) History Medical History History ICD Code Arthritis Back,Hip,and Knee pain Cancer Cataracts Diabetic type 2 Heart disease High blood pressure thyroid Measles Mumps Chicken pox Surgical History Surgery Date(Month/Year) skin cancer 1918,1918,06/2020 cardiac pacemeker
== END 2025-05-10 09:48 | disposition home or self-care (01) ==
LOC: HO.HMCC 09:12
PROVIDERS: PCP Internal Medicine; Visit Provider Internal Medicine
DX: Z00.01 Encounter for general adult medical examination with abnormal findings (principal); E13.9 Other specified diabetes mellitus without complications; I10 Essential (primary) hypertension; E03.8 Other specified hypothyroidism; R80.9 Proteinuria, unspecified; E78.9 Disorder of lipoprotein metabolism, unspecified; M17.0 Bilateral primary osteoarthritis of knee

== ENCOUNTER 2025-08-09 09:22 | Outpatient (AMB) | payer MEDICARE, OTHER, SELFPAY ==
--- NOTE | 2025-08-09 09:24 | A.OFFPC_ITS ---
Vital Signs 08/09/25 09:26 Height 5 ft 5 in Weight 176 lb BMI 29.3 BP 144/70 H Blood Pressure Location Lt brachial Position Sitting Pulse 75 Pulse Source Pulse Oximeter Pulse Oximetry (%) 96 Intake Visit Reasons: 3m follow up Allergies No Known Allergies Allergy (Mild, Verified 08/09/25 09:26) NA Medication List - Last Reconciled 08/09/25 by Yves Arce MD amlodipine 10 mg PO DAILY 90 days atorvastatin 40 mg PO DAILY 90 days blood sugar diagnostic As directed blood sugar diagnostic (Accu-Chek Suzi Plus test strips) Patient to check blood sugar once daily blood-glucose meter As directed glipizide ER 10 mg PO BID 90 days lancets As directed lancets (Accu-Chek Softclix Lancets) Patient to check blood sugar once daily levothyroxine (Levoxyl) 100 mcg PO DAILY 90 days olmesartan 40 mg PO DAILY pioglitazone (Actos) 15 mg PO DAILY Tobacco use date assessed: 05/10/25 Fall risk assessment: No Falls in past year Last assessed Fall Risk: 08/09/25 Dental Screening Dental Screen Date: 05/10/25 HPI 3m follow up HPI Details History The patient is an 89-year-old female presenting with chronic conditions management. Essential Hypertension: - The patient has been on medication for hypertension, including amlodipine 10 mg and olmesartan 40 mg. - Blood pressure in today?s reading was 144/70 mmHg. - There was an absence of reported dizzi ness, headaches, or other hypertensive emergencies. Type 2 Diabetes Mellitus: - Currently managed with glipizide 10 mg BID and pioglitazone 15 mg. - The latest hemoglobin A1c in April was 8.7, indicating suboptimal control; however, most recent reading noted in conversation improved to 7.4. that was checked today - The patient reports home glucose level s between 100-130 mg/dL with a morning reading of 126 mg/dL. Hyperlipidemia: - The patient is on atorvastatin 40 mg f or lipid management. - The LDL cholesterol level was noted to be 65 mg/dL. - Liver enzyme alkaline phosphatase was stable at 136 U/L. Hypothyroidism: - Managed with levothyroxine 100 mcg. - Thyroid-stimulating hormone (TSH) leve l was 1.32, indicating within normal limits. Chronic Kidney Disease: - The lab results in April noted a creati nine level of 1.56 mg/dL and a GFR of 31 mL/min. - The patient had previously declined re ferral to nephrology. - Mild anemia was observed with a hemogl obin level of 11.6 g/dL, which has remained stable without significant change. Medical History: - Essential Hypertension - Type 2 Diabetes Mellitus - Hyperlipidemia - Hypothyroidism - Chronic Kidney Disease - Anemia Medications: - Amlodipine 10 mg for blood pressure - Atorvastatin 40 mg for lipid control - Glipizide 10 mg BID for diabetes - Levothyroxine 100 mcg for hypothyroidi sm - Olmesartan 40 mg for hypertension - Pioglitazone 15 mg for diabetes Social History: - Lives alone in a duplex; son and famil y live next door, providing assistance. 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 - Drives self. Problem List - Essential Hypertension - Type 2 Diabetes Mellitus - Hyperlipidemia - Hypothyroidism - Chronic Kidney Disease - Anemia Diagnostic results - Labs: Hemoglobin A1c of 8.7 in April, n ow 7.4; LDL cholesterol of 65 mg/dL; TSH of 1.32; hemoglobin level of 11.6 g/dL; alkaline phosphatase of 136 U/L. - Tests: Creatinine level of 1.56 mg/dL; GFR of 31 mL/min. Patient Instructions - Schedule and complete a blood test at the end of August or early September. - Continue current medication regimen. - Keep track of blood sugar levels and b ring the glucose meter to the next visit for checking accuracy. - Seek assistance from family if needed. Review of Systems General: No fever no chills neurological: No headaches no dizziness ear nose throat: No sore throat no hearing difficulty no ear pain cardiovascular: No syncope, no chest pain, no palpitations gastrointestinal: No nausea vomiting or diarrhea endocrine: No polyuria polydipsia no heat intolerance genitourinary: No dysuria skin: No new complaints Physical Exam general: No acute distress HEENT: No acute findings neck: Supple respiratory system: Able to talk in full sentences, no audible wheeze, no stridor cardiovascular: S1-S2 RRR gastrointestinal: No pain extremities: Slight swelling noted, improves at night TESTER COMPRESSED GASES: Alert awake oriented x3 motor intact skin: Normal turgor [facility] Medical History Microalbuminuria Osteoarthritis of knees, bilateral 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 Son No problems noted. Son No problems noted. Son No problems noted. Son No problems noted. Social History Housing: House Alcohol intake: never Patient Tobacco Use Status: Former Tobacco user (30 years ago ) Tobacco use type: Cigarette Years Smoked: 20 years e-Cigarette/Vaping Use: Never Used service: No Current occupational status: retired Current occupation: Right Handed Cognitive needs: No Hearing needs: No Vision needs: Yes Questionnaire Thrive Questionnaire Date Thrive assessed: 12/04/24 PATRICIA-7 AMB Questionnaire PATRICIA-7 Date PATRICIA - 7 assessed: 12/04/24 Source: Developed by Drs. Abiel Christensen, Malu Ram, Jean-Pierre Higginbotham and colleagues, with an educational [email or web address] from [email or web address]. Physical exam (Primary Care) Vital Signs: Last Vital Signs Pulse 75 08/09/25 09:26 BP 144/70 H 08/09/25 09:26 Pulse Ox 96 08/09/25 09:26 BMI result Body Mass Index 29.3 Tobacco/Smoking Status: Tobacco use Status Tobacco use date assessed 05/10/25 08/09/25 09:26 Patient Tobacco Use Status Former Tobacco user (30 08/09/25 09:26 years ago ) Tobacco use type Cigarette 08/09/25 09:26 e-Cigarette/Vaping Use Never Used 08/09/25 09:26 Thrive Assessment: Date of Thrive Assessment Date Thrive assessed 12/04/24 08/09/25 09:26 Results AMB Hemoglobin A1c AMB Hemoglobin A1c 7.4 % Last Edit by Jose D Walters CMA on 08/09/25 09: 40 Results Reviewed Results Reviewed: Laboratory Last Values Hgb A1c (Clinic) 7.4 % (4.0-6.0) H 08/09/25 09:39 Coding Level of Care Code Est Pt Level 4 (75567) Complex EM visit Add On G2211 Diagnoses Hypertension, essential I10 Lipid disorder E78.9 Diabetes 1.5, managed as type 2 E13.9 Other specified hypothyroidism E03.8 LFT elevation R79.89 Elevated serum creatinine R79.89 Nephropathy N28.9 Microalbuminuria R80.9 Primary osteoarthritis of both knees M17.0 Osteoarthritis type: primary Anemia in chronic illness D63.8 Assessment & Plan Assessment & Plan (1) Hypertension, essential: Code(s): I10 - Essential (primary) hypertension Category: Medical (2) Lipid disorder: Code(s): E78.9 - Disorder of lipoprotein metabolism, unspecified Category: Medical (3) Diabetes 1.5, managed as type 2: Code(s): E13.9 - Other specified diabetes mellitus without complications Category: Medical (4) Other specified hypothyroidism: Code(s): E03.8 - Other specified hypothyroidism Category: Medical (5) LFT elevation: Code(s): R79.89 - Other specified abnormal findings of blood chemistry Category: Medical (6) Elevated serum creatinine: Code(s): R79.89 - Other specified abnormal findings of blood chemistry Category: Medical (7) Nephropathy: Code(s): N28.9 - Disorder of kidney and ureter, unspecified Category: Medical (8) Microalbuminuria: Code(s): R80.9 - Proteinuria, unspecified Category: Medical (9) Osteoarthritis of knees, bilateral: Code(s): M17.0 - Bilateral primary osteoarthritis of knee Category: Medical Qualifiers: Osteoarthritis type: primary Qualified Code(s): M17.0 - Bilateral primary osteoarthritis of knee (10) Anemia in chronic illness: Code(s): D63.8 - Anemia in other chronic diseases classified elsewhere Category: Medical Plan History The patient is an 89-year-old female presenting with chronic conditions managem ent. Essential Hypertension: - The patient has been on medication for hypertension, including amlodipine 10 mg and olmesartan 40 mg. - Blood pressure in today?s reading was 144/70 mmHg. - There was an absence of reported dizziness, headaches, or other hypertensive emergencies. Type 2 Diabetes Mellitus: - Currently managed with glipizide 10 mg BID and pioglitazone 15 mg. - The latest hemoglobin A1c in April was 8.7, indicating suboptimal control; however, most recent reading noted in conversation improved to 7.4. that was checked today - The patient reports home glucose levels between 100-130 mg/dL with a morning reading of 126 mg/dL. Hyperlipidemia: - The patient is on atorvastatin 40 mg for lipid management. - The LDL cholesterol level was noted to be 65 mg/dL. - Liver enzyme alkaline phosphatase was stable at 136 U/L. Hypothyroidism: - Managed with levothyroxine 100 mcg. - Thyroid-stimulating hormone (TSH) level was 1.32, indicating within normal limits. Chronic Kidney Disease: - The lab results in April noted a creatinine level of 1.56 mg/dL and a GFR of 31 mL/min. - The patient had previously declined referral to nephrology. - Mild anemia was observed with a hemoglobin level of 11.6 g/dL, which has remained stable without significant change. Medical History: - Essential Hypertension - Type 2 Diabetes Mellitus - Hyperlipidemia - Hypothyroidism - Chronic Kidney Disease - Anemia Medications: - Amlodipine 10 mg for blood pressure - Atorvastatin 40 mg for lipid control - Glipizide 10 mg BID for diabetes - Levothyroxine 100 mcg for hypothyroidism - Olmesartan 40 mg for hypertension - Pioglitazone 15 mg for diabetes Social History: - Lives alone in a duplex; son and family live next door, providing assistance. - Manages daily activities including cooking, cleaning, and groceries independently. - Drives self. Problem List - Essential Hypertension - Type 2 Diabetes Mellitus - Hyperlipidemia - Hypothyroidism - Chronic Kidney Disease - Anemia Diagnostic results - Labs: Hemoglobin A1c of 8.7 in April, now 7.4; LDL cholesterol of 65 mg/dL; TSH of 1.32; hemoglobin level of 11.6 g/dL; alkaline phosphatase of 136 U/L. - Tests: Creatinine level of 1.56 mg/dL; GFR of 31 mL/min. Patient Instructions - Schedule and complete a blood test at the end of August or early September. - Continue current medication regimen. - Keep track of blood sugar levels and bring the glucose meter to the next visit for checking accuracy. - Seek assistance from family if needed. Orders: Orders Comprehensive Met. Panel Today E03.8 - Other specified hypothyroidism, E13.9 - Other specified diabetes mellitus without complications, E78.9 - Disorder of lipoprotein metabolism, unspecified, I10 - Essential (primary) hypertension, N28.9 - Disorder of kidney and ureter, unspecified, R79.89 - Other specified abnormal findings of blood chemistry, R80.9 - Proteinuria, unspecified Complete Blood Count Auto Diff Today E03.8 - Other specified hypothyroidism, E13.9 - Other specified diabetes mellitus without complications, E78.9 - Disorder of lipoprotein metabolism, unspecified, I10 - Essential (primary) hypertension, N28.9 - Disorder of kidney and ureter, unspecified, R79.89 - Other specified abnormal findings of blood chemistry, R80.9 - Proteinuria, unspecified TSH reflex Free T4 Today E03.8 - Other specified hypothyroidism, E13.9 - Other specified diabetes mellitus without complications, E78.9 - Disorder of lipo protein metabolism, unspecified, I10 - Essential (primary) hypertension, N28.9 - Disorder of kidney and ureter, unspecified, R79.89 - Other specified abnormal findings of blood chemistry, R80.9 - Proteinuria, unspecified LDL Cholesterol Direct Today E03.8 - Other specified hypothyroidism, E13.9 - Other specified diabetes mellitus without complications, E78.9 - Disorder of lipoprotein metabolism, unspecified, I10 - Essential (primary) hypertension, N28.9 - Disorder of kidney and ureter, unspecified, R79.89 - Other specified abnormal findings of blood chemistry, R80.9 - Proteinuria, unspecified AMB Hemoglobin A1c Today Z13.9 - Encounter for screening, unspecified
[2025-08-09 09:26] VITALS: BP 144/70; PULSE 75; O2SAT 96; BMI 29.3
--- OUTSIDE RECORDS SUMMARY | 2025-08-09 10:27 | XMS_ITS | Patient Health Record ---
Author Organization [facility] Address [address] [place] [address] Care Team Providers Care Cottrell Operator Name Role Phone Claude NANCE, Asma [...] Problem Status W/U Status Risk Notes Problem [id number] Diarrhea, unspecified type (R19.7) Active confirmed Plan [...] Date MEDICARE OF [place] [address] [facility] [place] [id number] SELENA SEALS Self - patient is the insured [facility] [address] [place] [address] [id number] SELENA SEALS Self - patient is the insured Medical (General) History Medical History History ICD Code Diabetes mellitus type 2 with nephropath y Thyroid disease Hypertension Osteoarthritis Colonoscopy 08/09, tubular adenoma follow up optional due to age Hyperlipidemia Surgical History Surgery Date(Month/Year) Pacemaker--[employer] 2007 Cataract replacements bilaterally skin cancer removal zoroastrianism
--- OUTSIDE RECORDS SUMMARY | 2025-08-09 10:27 | XMS_ITS | Patient Health Record ---
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 Name Role Phone Claude NANCE, [facility] Primary [facility] Provider Cindy Glass Unavailable [phone] Allergies No Known Allergies Results Component Value Reference Range Notes HEMOGLOBIN A1C (GLYCOHEMOGLO BIN) Reviewed date:01/30/2025 10:44:22 AM Interpretation: Performing Lab: Notes/Report: HEMOGLOBIN A1C % (HH) 6.9 HEMOGLOBIN A1C (GLYCOHEMOGLO BIN) Reviewed date:07/31/2025 01:09:38 PM Interpretation: Performing Lab: Notes/Report: HEMOGLOBIN A1C % (HH) 6.9 Reason For Referral No Information Medications Medication SIG (Take, Route, Frequency, Duration) Notes Start Date End Date Status Levoxyl 100 MCG 1 tablet in the morn ing on an empty stomach Orally Once a day; Duration: 30 day(s) Active amLODIPine Besylate 5 MG 1 tablet Orally Once a day; Duration: 30 day(s) Not-Cliff ing Extra Depth Orthopedic Shoes (1 Pair) with [...] 20 MG 1 tablet Orally Once a day; Duration: 30 day(s) Not-Cliff ing metFORMIN HCl 500 MG 1 tablet with a jus l Orally Once a day; Duration: 30 day(s) Not-Taking glipiZIDE Active Calcium + D Active Atorvastatin Calcium 40 MG 1 tablet Orally Once a day; Duration: 30 day(s) Active Immunizations Vaccine Route Administration Date Status Comme nts Influenza Unknown 07/29/2020 Administered Influenza Unknown 07/29/2021 Administered Influenza Unknown 07/29/2022 Administered Influenza Unknown 08/12/2022 Administered Influenza Unknown 07/29/2023 Administered Influenza Unknown 07/24/2025 Administered COVID-19 Moderna Vaccine Unknown 01/30/2021 Administered COVID-19 Moderna Vaccine Unknown 09/28/2021 Administered First Dose: 02/27/21 Second Dose: 03/20/21 Social History Tobacco Use: Social History Observation [...] (Standard) Question Answer Notes Tobacco use: Nonsmoker Additional Findings: Tobacco non-user Current no nsmoker AUDIT-C (Standard) Question Answer Notes Did you have a drink containing alcohol in the p ast year? No Points 0 Interpretation Negative Problems Problem Type SNOMED Code ICD Code Onset Dates Problem Status W/U Status Risk Notes Problem Acquired hammer toe of right foot (9114048678541949) Other hammer toe(s) (acquired), right foot (M20.41) Active confirmed Problem Acquired hammer toe of left foot (4535341641426126) Other hammer toe(s) (acquired), left foot (M20.42) Active confirmed Problem Plantar wart (82954065) Plantar wart (B07.0) Active confirmed Problem Type 2 diabetes mellitus with peripheral angiopathy (048083858) Type 2 diabetes mellitus with diabetic peripheral angiopathy without gangrene (E11.51) Active confirmed Problem Bilateral atherosclerosis of arteries of lower limbs (disorder) (64094590860468311 ) Atherosclerosis of [place] artery of both lower extremities, with unspecified presence of clinical manifestation (I70.203) Active confirmed Vital Signs Blood pressure diastolic 65 mm Hg 07/31/2025 Height 5 ft 5 in in 07/31/2025 Blood pressure systolic 130 mm Hg 07/31/2025 Weight 175 lbs 07/31/2025 BMI 29.12 kg/m2 07/31/2025 Encounters Encounter Location Date Provider Diagnosis [address] [address] 09/07/2024 Cindy Perica Type 2 diabetes mellitus with diabetic peripheral angiopathy without gangrene E11.51 ; Atherosclerosis of [place] artery of both lower extremities, with unspecified presence of clinical manifestation I70.203 ; Plantar wart B07.0 and Pain in left foot M79.[address] [address] 11/16/2024 Cindy Perica Type 2 diabetes mellitus with diabetic peripheral angiopathy without gangrene E11.51 ; Atherosclerosis of [place] artery of both lower extremities, with unspecified presence of clinical manifestation I70.203 ; Plantar wart B07.0 and Pain in left foot M79.[address] [address] 01/30/2025 Cindy Perica Type 2 diabetes mellitus with diabetic peripheral angiopathy without gangrene E11.51 ; Atherosclerosis of [place] artery of both lower extremities, with unspecified presence of clinical manifestation I70.203 ; Plantar wart B07.0 and Pain in left foot M79.[address] [address] 05/01/2025 Cindy Perica Type 2 diabetes mellitus with diabetic peripheral angiopathy without gangrene E11.51 ; Atherosclerosis of [place] artery of both lower extremities, with unspecified presence of clinical manifestation I70.203 ; Plantar wart B07.0 and Pain in left foot M79.[address] [address] 07/31/2025 Cindy Perica Type 2 diabetes mellitus with diabetic peripheral angiopathy without gangrene E11.51 ; Atherosclerosis of [place] artery of both lower extremities, with unspecified [...] gangrene (ICD-10 - E11.51) 11/16/2024 Atherosclerosis of [place] artery of both lower extremities, with unspecified presence of clinical manifestation (ICD-10 - I70.203) 01/30/2025 Type 2 diabetes mellitus with diabetic peripheral angiopathy without gangrene (ICD-10 - E11.51) 05/01/2025 Type 2 diabetes mellitus with diabetic peripheral angiopathy without gangrene (ICD-10 - E11.51) 07/31/2025 Type 2 diabetes mellitus with diabetic peripheral angiopathy without gangrene (ICD-10 - E11.51) 07/31/2025 Atherosclerosis of [place] artery of both lower extremities, with unspecified presence of clinical manifestation (ICD-10 - I70.203) 05/01/2025 Atherosclerosis of [place] artery of both lower extremities, with unspecified presence of clinical manifestation (ICD-10 - I70.203) 01/30/2025 Atherosclerosis of [place] artery of both lower extremities, with unspecified presence of clinical manifestation (ICD-10 - I70.203) 11/16/2024 Plantar wart (ICD-10 - B07.0) 09/07/2024 Atherosclerosis of [place] artery of both lower extremities, with unspecified presence of clinical manifestation (ICD-10 - I70.203) 09/07/2024 Plantar wart (ICD-10 - B07.0) 11/16/2024 Pain in left foot (ICD-10 - M79.672) 01/30/2025 Plantar wart (ICD-10 - B07.0) 05/01/2025 Plantar wart (ICD-10 - B07.0) 07/31/2025 Plantar wart (ICD-10 - B07.0) 07/31/2025 Pain in left foot (ICD-10 - M79.672) 05/01/2025 Pain in left foot (ICD-10 - M79.672) 01/30/2025 Pain in left foot (ICD-10 - M79.672) 09/07/2024 Pain in left foot (ICD-10 - M79.672) Plan Of Treatment Next Appt Details Provider Name:Cindy Denae sainz, 11/08/2025 09:00:00 AM, [address] [place], [address], Insurance Providers Payer Name Payer Address Payer Phone Subscriber Number Group Number Insured Name Patient Relationship to Insured Coverage Start Date Coverage End Date Medicare [facility] [address] [place] [address] [phone] [id number] Blanca Lerma Self - patient is the insured [facility] [address] [place] [address] [id number] Blanca Lerma Self - patient is the insured Medical (General) History Medical History History ICD Code Arthritis Back,Hip,and Knee pain Cancer Cataracts Diabetic type 2 Heart disease High blood pressure thyroid Measles Mumps Chicken pox Surgical History Surgery Date(Month/Year) skin cancer 1918,191,06/2020 cardiac pacemeker
== END 2025-08-09 09:44 | disposition home or self-care (01) ==
LOC: HO.HMCC 09:23
PROVIDERS: PCP Internal Medicine; Visit Provider Internal Medicine
DX: I10 Essential (primary) hypertension (principal); E78.9 Disorder of lipoprotein metabolism, unspecified; E13.9 Other specified diabetes mellitus without complications; E03.8 Other specified hypothyroidism; R79.89 Other specified abnormal findings of blood chemistry; N28.9 Disorder of kidney and ureter, unspecified; R80.9 Proteinuria, unspecified; M17.0 Bilateral primary osteoarthritis of knee; D63.8 Anemia in other chronic diseases classified elsewhere; Z13.9 Encounter for screening, unspecified

== ENCOUNTER → 2025-08-09 09:22 | Outpatient (BNVA) | payer MEDICARE, OTHER, SELFPAY | PROVIDERS: PCP Internal Medicine; Visit Provider Internal Medicine | DX: I12.9 Hypertensive chronic kidney disease with stage 1 through stage 4 chronic kidney disease, or unspecified chronic kidney disease (principal); E78.5 Hyperlipidemia, unspecified; E03.9 Hypothyroidism, unspecified; E78.9 Disorder of lipoprotein metabolism, unspecified; E13.22 Other specified diabetes mellitus with diabetic chronic kidney disease; N18.9 Chronic kidney disease, unspecified; E03.8 Other specified hypothyroidism; R79.89 Other specified abnormal findings of blood chemistry; R80.9 Proteinuria, unspecified; M17.0 Bilateral primary osteoarthritis of knee; D63.8 Anemia in other chronic diseases classified elsewhere | CPT/HCPCS: 83036; 99212 ==

== ENCOUNTER 2025-09-25 08:23 | Outpatient (REF) | payer MEDICARE, OTHER, SELFPAY ==
[2025-09-25 09:57] LABS: MANUAL DIFF FLAG NO
[2025-09-25 10:05] LABS: Hematocrit 33.8 % (37.0-47.0); Hemoglobin 10.9 g/dl (12.0-16.0); Imm Gran Abs Auto 0.08 X10*3/uL (0.00-0.03); Imm Gran Pct Auto 0.9 % (0.0-0.4); Lymphocytes Absolute Auto 3.8 X10*3/uL (1.2-4.9); Mean Corpuscular HGB Conc 32.2 g/dl (31.0-35.0); Mean Corpuscular Hemoglobin 30.4 pg (27.0-33.0); Mean Corpuscular Volume 94.4 fL (80.0-98.0); NRBC Abs Auto 0.000 X10*3/uL (0.0-0.012); NRBC Pct Auto 0.0 /100WBC (0.0-0.2); Platelet Count 215 X10*3/uL (160-400); Red Blood Count 3.58 X10*6/uL (4.20-5.50); White Blood Count 9.1 X10*3/uL (4.8-10.8)
[2025-09-25 10:50] LABS: Alanine Aminotransferase 17 U/L (0-31); Albumin Level 4.4 g/dL (3.5-5.0); Alkaline Phosphatase 116 U/L (39-117); Anion Gap 13 (12-20); Aspartate Amino Transferase 23 U/L (5-31); Blood Urea Nitrogen 36 mg/dL (9-16); Calcium 9.8 mg/dL (8.4-10.2); Carbon Dioxide 25 mmol/L (22-29); Chloride 108 mmol/L (96-108); Estimated Glomerular Filt Rate 33; Potassium 4.1 mmol/L (3.3-5.1); Sodium 142 mmol/L (135-145); Total Protein 7.5 g/dL (6.5-8.0)
== END 2025-09-25 08:24 | disposition home or self-care (01) ==
LOC: HO.HMGCLDS 08:23
PROVIDERS: PCP Internal Medicine; Visit Provider Internal Medicine
DX: I10 Essential (primary) hypertension (principal); E78.9 Disorder of lipoprotein metabolism, unspecified; E13.9 Other specified diabetes mellitus without complications; E03.8 Other specified hypothyroidism; R79.89 Other specified abnormal findings of blood chemistry; N28.9 Disorder of kidney and ureter, unspecified; R80.9 Proteinuria, unspecified
CPT/HCPCS: 36415; 80053; 83721; 84443; 85025